=== PATIENT | female | born 1970 | race American Indian/Alaskan Native ===

== ENCOUNTER 2016-11-13 12:08 | Emergency (ER) | payer SELFPAY ==
[2016-11-13 12:35] VITALS: BP 123/84
--- NOTE | 2016-11-13 14:15 | Emergency Department Report ---
ED General Adult HPI - General Chief complaint: Earache Stated complaint: LT EAR/THROAT PAIN Time Seen by Provider: 11/13/16 14:07 Source: patient Mode of arrival: Ambulatory Limitations: No Limitations - History of Present Illness Initial comments: 46 year old female presents with sore throat and left sided earache. denies fever, cough, cp, sob, abdominal pain. states taking otc medication with no relief. - Related Data Previous Rx's Medication Instructions Recorded Last Taken Type Fluconazole [Diflucan] 150 mg PO QDAY #1 tablet 02/15/14 Unknown Rx Penicillin Vk [Veetids TAB] 2 tab PO BID #40 tablet 02/15/14 Unknown Rx metroNIDAZOLE [Flagyl] 500 mg PO BID #14 tablet 02/15/14 Unknown Rx Ibuprofen [Motrin 800 MG tab] 800 mg PO Q8H #45 tablet 10/18/14 Unknown Rx traMADol [Ultram 50 MG tab] 50 mg PO Q6HR PRN #30 tablet 10/18/14 Unknown Rx Penicillin Vk [Veetids TAB] 500 mg PO QID #28 tablet 11/13/16 Unknown Rx Allergies Allergy/AdvReac Type Severity Reaction Status Date / Time acetaminophen [From Percocet] Allergy Hives Verified 02/14/14 20:11 hydrocodone bitartrate Allergy Swelling Verified 02/14/14 20:11 [From Vicodin] oxycodone HCl [From Percocet] Allergy Hives Verified 02/14/14 20:11 ED Review of Systems ROS: Stated complaint: LT EAR/THROAT PAIN Other details as noted in HPI Constitutional: denies: chills, fever Eyes: denies: eye pain, eye discharge, vision change ENT: denies: ear pain, throat pain Respiratory: denies: cough, shortness of breath, wheezing Cardiovascular: denies: chest pain, palpitations Endocrine: no symptoms reported Gastrointestinal: denies: abdominal pain, nausea, diarrhea Genitourinary: denies: urgency, dysuria, discharge Musculoskeletal: denies: back pain, joint swelling, arthralgia Skin: denies: rash, lesions Neurological: denies: headache, weakness, paresthesias Psychiatric: denies: anxiety, depression Hematological/Lymphatic: denies: easy bleeding, easy bruising ED Past Medical Hx - Past Medical History Previous Medical History?: No - Surgical History Additional Surgical History: screws in right knee, X 2 - Social History Smoking Status: Current Every Day Smoker Substance Use Type: Alcohol - Medications Home Medications: Home Medications Medication Instructions Recorded Confirmed Last Taken Type Fluconazole [Diflucan] 150 mg PO QDAY #1 tablet 02/15/14 Unknown Rx Penicillin Vk [Veetids TAB] 2 tab PO BID #40 tablet 02/15/14 Unknown Rx metroNIDAZOLE [Flagyl] 500 mg PO BID #14 tablet 02/15/14 Unknown Rx Ibuprofen [Motrin 800 MG tab] 800 mg PO Q8H #45 tablet 10/18/14 Unknown Rx traMADol [Ultram 50 MG tab] 50 mg PO Q6HR PRN #30 tablet 10/18/14 Unknown Rx Penicillin Vk [Veetids TAB] 500 mg PO QID #28 tablet 11/13/16 Unknown Rx ED Physical Exam - General Limitations: No Limitations General appearance: alert, in no apparent distress - Head Head exam: Present: atraumatic, normocephalic - Eye Eye exam: Present: normal appearance - ENT ENT exam: Present: normal orophraynx, mucous membranes moist, TM's normal bilaterally, normal external ear exam. Absent: mucous membranes dry - Neck Neck exam: Present: normal inspection - Respiratory Respiratory exam: Present: normal lung sounds bilaterally. Absent: respiratory distress - Cardiovascular Cardiovascular Exam: Present: regular rate, normal rhythm. Absent: systolic murmur, diastolic murmur, rubs, gallop - GI/Abdominal GI/Abdominal exam: Present: soft, normal bowel sounds - Extremities Exam Extremities exam: Present: normal inspection - Back Exam Back exam: Present: normal inspection - Neurological Exam Neurological exam: Present: alert, oriented X3 - Psychiatric Psychiatric exam: Present: normal affect, normal mood - Skin Skin exam: Present: warm, dry, intact, normal color. Absent: rash ED Course Vital Signs 11/13/16 12:31 Temperature 98.6 F Pulse Rate 78 Respiratory 16 Rate Blood Pressure 123/84 O2 Sat by Pulse 100 Oximetry ED Medical Decision Making - Medical Decision Making patient is resting comfortably at this time. VSS and NAD. Critical care attestation.: If time is entered above; I have spent that time in minutes in the direct care of this critically ill patient, excluding procedure time. ED Disposition Clinical Impression: Acute URI Disposition: DISCHARGED TO HOME OR SELFCARE Is pt being admited?: No Does the pt Need Aspirin: No Condition: Good Instructions: Upper Respiratory Infection (ED) Additional Instructions: take medication as prescribed. Prescriptions: Penicillin Vk [Veetids TAB] 500 mg PO QID #28 tablet Referrals: KEYSHA NICHOLS MD [Referring] - 3-5 Days Time of Disposition: 14:16
== END 2016-11-13 14:22 | disposition home or self-care (01) ==
LOC: ED 12:08
DX: J06.9 Acute upper respiratory infection, unspecified (principal); F17.200 Nicotine dependence, unspecified, uncomplicated; Z88.8 Allergy status to other drugs, medicaments and biological substances
CPT/HCPCS: 99282

== ENCOUNTER 2021-03-02 09:24 | Day surgery (SDC) | payer OTHER ==
[2021-02-28 13:12] LABS: Eosinophils # (Auto) 0.1 K/mm3 (0.0-0.4); Eosinophils % (Auto) 2.4 % (0.0-4.3); Hematocrit 42.2 % (30.3-42.9); Hemoglobin 14.2 gm/dl (10.1-14.3); Lymphocytes # (Auto) 3.1 K/mm3 (1.2-5.4); Lymphocytes % (Auto) 52.6 % (13.4-35.0); Mean Corpuscular HGB Conc 34 % (30-34); Mean Corpuscular Volume 92 fl (79-97); Monocytes # (Auto) 0.5 K/mm3 (0.0-0.8); Monocytes % (Auto) 7.6 % (0.0-7.3); Platelet Count 359 K/mm3 (140-440); Red Blood Count 4.59 M/mm3 (3.65-5.03); Red Cell Distribution Width 14.2 % (13.2-15.2)
--- NOTE | 2021-02-28 13:29 | Anesthesia Consultation ---
Anesthesia Consult and Med Hx Date of service: 03/02/21 - Airway Anesthetic Teeth Evaluation: Good, Partials (upper) ROM Head & Neck: Adequate Mental/Hyoid Distance: Adequate Mallampati Class: Class II Intubation Access Assessment: Probably Good - Pulmonary Exam CTA: Yes - Cardiac Exam Cardiac Exam: RRR - Pre-Operative Health Status ASA Pre-Surgery Classification: ASA2 Proposed Anesthetic Plan: General Nerve Block: TAP - Pulmonary Hx Smoking: Yes (1/2 PPD) Hx Respiratory Symptoms: No - Cardiovascular System Hx Hypertension: No - Central Nervous System CVA: No - Endocrine Hx Renal Disease: No Hx Liver Disease: No Hx Insulin Dependent Diabetes: No Hx Non-Insulin Dependent Diabetes: No Hx Thyroid Disease: No - Other Systems Hx Obesity: No - Additional Comments Anesthesia Medical History Comments: No hx anesthetic complications. Hx allergy to oxycodone and hydrocodone w/ reaction of hives. Unsure of which PO pain medications have worked for her in the past. No known reaction to IV opioids. No allergy to tylenol.
[~2021-03-02 09:24] MED LIST: ACETAMINOPHEN 500 MG TAB PO SCH; CELECOXIB 200 MG CAP PO NR; GABAPENTIN 300 MG CAP PO NR; LACTATED RINGERS 1,000 ML IV SCH; MIDAZOLAM 2 MG/2 ML INJ IV NR; SCOPOLAMINE TRANSDERMAL PATCH 72 HR TD NR; fentaNYL 100 MCG/2 ML INJ IV PRN
[2021-03-02] MEDS ORDERED: dexAMETHasone 4 MG/ML VIAL ONE (10:09)
[2021-03-02] MEDS ORDERED: BUPIVACAINE/PF (0.25%) 2.5 MG/ML 30 ML VIAL INFILTRATI ONE (10:09)
[2021-03-02] MEDS ORDERED: cloNIDine/PF 1,000 MCG/10 ML VIAL EP ONE (10:09)
[2021-03-02] MEDS ORDERED: fentaNYL 100 MCG/2 ML INJ IV PRN (10:30)
[2021-03-02] MEDS ORDERED: ONDANSETRON 4 MG/2 ML INJ IV PRN ×2 (10:30→17:42)
--- NOTE | 2021-03-02 10:30 | Anesthesia Day of Surgery ---
Anesthesia Day of Surgery - Day of Surgery Patient Examined: Yes Patient H&P Reviewed: Yes Patient is NPO: Yes
--- NOTE | 2021-03-02 11:02 | Short Stay Summary ---
Short Stay Documentation Date of service: 03/02/21 Narrative H&P: 50-year-old -0-3-2 with dysfunctional uterine bleeding and uterine fibroids. Pelvic ultrasound demonstrated an enlarged uterus of 13 cm with multiple leiomyomas. The largest leiomyoma measured 7.2 cm. The patient elected for definitive surgical management. - History Principal diagnosis: Symptomatic uterine fibroids Past Medical History: No medical history Past Surgical History: Other (Abdominoplasty; breast lumpectomy; knee surgery) Social history: single - Allergies and Medications Current Medications: Allergies acetaminophen [From Percocet] Allergy (Verified 02/25/21 16:51) Hives hydrocodone bitartrate [From Vicodin] Allergy (Verified 02/25/21 16:51) Swelling oxycodone HCl [From Percocet] Allergy (Verified 02/25/21 16:51) Hives Home Medications Medication Instructions Recorded Confirmed Last Taken Type No Known Home Medications [No 02/25/21 02/25/21 Unknown History Reported Home Medications] Active Medications Acetaminophen (Acetaminophen 500 Mg Tab) 1,000 mg PO PREOP KENNEDI Celecoxib (Celecoxib 200 Mg Cap) 200 mg PO PREOP NR Stop: 03/02/21 23:59 Fentanyl (Fentanyl 100 Mcg/2 Ml Inj) 100 mcg IV ONCE PRN PRN Reason: sedation for nerve block Stop: 03/02/21 23:59 Fentanyl (Fentanyl 100 Mcg/2 Ml Inj) 50 mcg IV Q5MIN PRN PRN Reason: Pain , Severe (7-10) Stop: 03/02/21 23:00 Gabapentin (Gabapentin 300 Mg Cap) 300 mg PO PREOP NR Stop: 03/02/21 23:59 Lactated Ringer's (Lactated Ringers) 1,000 mls @ 100 mls/hr IV DIRECT KENNEDI Stop: 03/02/21 23:59 Midazolam HCl (Midazolam 2 Mg/2 Ml Inj) 2 mg IV PREOP NR Stop: 03/02/21 23:59 Ondansetron HCl (Ondansetron 4 Mg/2 Ml Inj) 4 mg IV ONCE PRN PRN Reason: Nausea And Vomiting Stop: 03/02/21 14:00 Scopolamine (Scopolamine Transdermal Patch 72 Hr) 1 each TD PREOP NR Stop: 03/05/21 05:59 - Physical exam General appearance: no acute distress Integumentary: no rash HEENT: Atraumatic Lungs: Clear to auscultation Breasts: deferred Heart: Regular rate Gastrointestinal: normal Female Genitourinary: deferred Rectal Exam: deferred - Brief post op/procedure progress note Date of procedure: 03/02/21 Pre-op diagnosis: Symptomatic uterine fibroids Post-op diagnosis: same Procedure: Robotic hysterectomy and bilateral salpingectomy Anesthesia: GETA Surgeon: DENNIS RETANA Estimated blood loss: other (200 mL) Pathology: list (Uterus, cervix, bilateral tubes, leiomyomas) Specimen disposition: to lab Condition: stable - Hospital course Hospital course: The patient was admitted the day of surgery and underwent a robotic hysterectomy and bilateral salpingectomy. Please see operative note for details of surgery. Postoperative course was uneventful. - Disposition Condition at discharge: Good Disposition: 01 HOME / SELF CARE / HOMELESS Short Stay Discharge Plan Activity: other (Pelvic rest for 6 weeks) Diet: regular Additional Instructions: Follow-up with Dr. Retana in 4 weeks Pelvic rest for 6 weeks No tub baths for 4 weeks however patient may shower Patient may drive in 2 weeks
[2021-03-02] MEDS ORDERED: NEOMY 40 MG/POLYMYXIN B 200,000 UNITS/ML (GU) AMPULE IR ONE ×2 (11:23→14:23)
[2021-03-02] MEDS ORDERED: ceFAZolin/Water 2 GM/20 ML 2 GM/20 ML SYRINGE IV NR (12:00)
[2021-03-02] MEDS ORDERED: LIDOCAINE MPF (2%) 20 MG/1 ML VIAL 5 ML ONE (12:59)
[2021-03-02] MEDS ORDERED: propofoL 200 MG/20 ML VIAL IV ONE (12:59)
[2021-03-02] MEDS ORDERED: HYDROmorphone 1 MG/1 ML INJ ONE ×2 (12:59→17:40)
[2021-03-02] MEDS ORDERED: SODIUM CHLORIDE 0.9% IRRIG SOLN 2000 ML IR ONE (14:24)
[2021-03-02] MEDS ORDERED: SODIUM CHLORIDE 0.9% IRR 1,500 ML BOTTLE IR ONE (14:24)
[2021-03-02] MEDS ORDERED: LACTATED RINGERS 1,000 ML ONE (15:32)
[2021-03-02] MEDS ORDERED: dexAMETHasone 20 MG/5 ML VIAL ONE (15:32)
[2021-03-02] MEDS ORDERED: ROCURONIUM 50 MG/5 ML INJ IV ONE (15:32)
[2021-03-02] MEDS ORDERED: ONDANSETRON 4 MG/2 ML INJ ONE (15:32)
[2021-03-02] MEDS ORDERED: KETOROLAC 30 MG/1 ML INJ ONE (15:52)
[2021-03-02] MEDS ORDERED: NEOSTIGMINE 10MG/10 ML INJ MDV ONE (15:52)
[2021-03-02] MEDS ORDERED: GLYCOPYRROLATE 0.4 MG/2 ML INJ ONE (15:52)
--- NOTE | 2021-03-02 15:55 | Operative Report ---
Operative Report Operative Report: Date of surgery: March 02, 2021 Preoperative diagnoses: Symptomatic uterine fibroids Postoperative diagnoses: Same as above Procedure: Robotic hysterectomy; bilateral salpingectomy Surgeon: Alexandria Romero M.D. Orthotic Fitter: Elyssa Holder Anesthesia: Gen. endotracheal anesthesia Estimated blood loss: 200 mL Pathology: Uterus, cervix, bilateral tubes, leiomyomas Indication: 50-year-old -0-3-2 with a history of symptomatic uterine fibroids. The patient elected to undergo definitive surgical management. Procedure: The patient was taken to the operating room and given general endotracheal anesthesia without complication after a time out was performed confirming the surgery and identity of the patient. She was prepped and draped in a normal sterile fashion. A bivalve speculum was placed in the patient's vagina and a single-tooth tenaculum placed on the anterior lip of the cervix. The uterus was sounded with the uterine sound. A stay suture with 0-vicryl was placed at 12 o'clock on the anterior cervix. A MetaJure uterine manipulator was placed in the bivalve speculum was then removed. A warm laparotomy sponge was placed in the vagina. Attention was then turned to the patient's abdomen where a 12millimeter supra umbilical skin incision was then made. A Veress needle was placed and peritoneal entry was verified water-filled syringe. Insufflation of the peritoneal cavity was performed with CO2 gas. The 12 mm trocar was then placed under direct visualization. An additional 8 mm robotic trocar was placed on the patient's left and right lateral side just opposite of the supraumbilical trocar. An additional 5 mm right lateral trocar was then placed as the accessory port. The supraumbilical 12 mm trocar site was closed with the Mario Reynolds device and 0-vicryl suture. The patient was then placed in steep Trendelenburg. The da Tesha robot was then engaged. A fenestrated forcep was placed in arm 2 and a vessel sealer was placed in arm 1. General survey of the abdomen and pelvis revealed a markedly enlarged fibroid uterus with multiple leiomyomas. The tubes and ovaries were normal in appearance. The surgeon then transferred to the surgical console. The mesosalpinx was then isolated on the right. The vessel sealer was used to coagulate the mesosalpinx which was then transected. The tube was transected from the ovary. The tubo-ovarian ligament was then coagulated and transected. The round ligament was then coagulated and transected also. The vesicouterine peritoneum was then entered from the patient's right side. The uterine vessels were then coagulated with the vessel sealer. The vessels were then transected . Attention was then turned to the patient's left side where the tubo-ovarian ligament and mesosalpinx were again isolated coagulated and transected. The vesical peritoneum was then entered from the left and joined in the midline. Peritoneum was reflected off of the lower uterine segment. Uterine vessels were then coagulated and then transected. The blood supply to the uterus was adequately contained. A supracervical hysterectomy had to be performed in order to improve visualization. The uterus was bivalved and the leiomyomas removed in order to decompress the uterus. The V care ring was visualized. Posterior colpotomy was created with the monopolar scissors. The incision was continued circumferentially until anterior colpotomy was made. The cervix and uterus were amputated from the vaginal cuff. The uterus was then removed along with the tubes bilaterally and the multiple leiomyomas through the vagina and a warm laparotomy sponge was placed and maintain the pneumoperitoneum. The vaginal cuff was then closed in a running fashion with V lock suture. Irrigation of the pelvis was performed. Hemoblast was applied to the incision. The The [employer] robot was undocked. The trocars were removed and the insuffliation was released. The skin was then reapproximated with 4-0 Monocryl. The tissue was sent to pathology which included the cervix, leiomyomas, bilateral tubes and uterus. The patient was then successfully extubated. She was then taken to the recovery room in stable condition. All sponge laps and needle counts were correct x2.
[2021-03-02] MEDS: HYDROmorphone 1 MG/1 ML INJ IV PRN ×2 (17:41→17:51)
[2021-03-02 19:16] VITALS: BP 107/60
--- NOTE | 2021-03-02 20:51 | Post Anesthesia Evaluation ---
- Post Anesthesia Evaluation Patient Participated: Yes Airway Patent: Yes Stable Respiratory Function: Yes Nausea/Vomiting: No Temp > 96.8F: Yes Pain Manageable: Yes Adequeate Hydration: Yes Anesthesia Complications: No
== END 2021-03-02 19:00 | disposition home or self-care (01) ==
LOC: OR 09:24
PROVIDERS: ATTEND Obstetrics & Gynecology
DX: D25.9 Leiomyoma of uterus, unspecified (principal); F17.210 Nicotine dependence, cigarettes, uncomplicated; Z79.899 Other long term (current) drug therapy; Z72.89 Other problems related to lifestyle; Z98.890 Other specified postprocedural states; Z20.822 Contact with and (suspected) exposure to COVID-19
CPT/HCPCS: 36415; 58573; 64488; 84703; 85025; 86850; 86900; 86901; 88307; A4217; J0690; J0735; J1100; J1170; J1885; J2250; J2405; J2704; J2710; J3010; J7120; S2900; U0003; 64450

== ENCOUNTER 2021-03-05 06:55 | Emergency (ER) | payer OTHER ==
[2021-03-05 07:39] LABS: Basophils # (Auto) 0.1 K/mm3 (0.0-0.1); Basophils % (Auto) 0.3 % (0.0-1.8); Hematocrit 43.1 % (30.3-42.9); Hemoglobin 14.8 gm/dl (10.1-14.3); Lymphocytes # (Auto) 1.7 K/mm3 (1.2-5.4); Mean Corpuscular HGB Conc 34 % (30-34); Mean Corpuscular Volume 91 fl (79-97); Monocytes # (Auto) 0.7 K/mm3 (0.0-0.8); Monocytes % (Auto) 4.3 % (0.0-7.3); Platelet Count 372 K/mm3 (140-440); Red Blood Count 4.73 M/mm3 (3.65-5.03); Red Cell Distribution Width 13.9 % (13.2-15.2)
[2021-03-05 07:47] LABS: Alanine Aminotransferase 13 units/L (7-56); Albumin 3.3 g/dL (3.9-5); Blood Urea Nitrogen 10 mg/dL (7-17); Calcium 9.4 mg/dL (8.4-10.2); Hemolysis Index 8
[2021-03-05 07:51] LABS: BUN/Creatinine Ratio 25
[2021-03-05] MEDS ORDERED: SODIUM CHLORIDE 0.9% 1000 ML 1,000 ML IV ONE ×2 (08:23→10:06)
[2021-03-05] MEDS ORDERED: MORPHINE 4 MG/1 ML INJ IV ONE (08:23)
[2021-03-05] MEDS ORDERED: KETOROLAC 30 MG/1 ML INJ IV ONE (08:23)
[2021-03-05] MEDS ORDERED: ONDANSETRON 4 MG/2 ML INJ IV ONE ×2 (08:23→10:06)
--- NOTE | 2021-03-05 08:27 | Emergency Department Report ---
ED Abdominal Pain HPI - General Chief Complaint: Nausea/Vomiting/Diarrhea Stated Complaint: VOMITING POST HYSTERECTOMY PUI?: No Time Seen by Provider: 03/05/21 08:22 Source: patient Mode of arrival: Ambulatory Limitations: No Limitations - History of Present Illness Initial Comments: CC: vomiting, in pain HPI: This is a 50 yo female with hx of uterine fibroids who is 3 days s/p robotic hysterectomy and bilateral salpingectomy who presents with lower abdominal pain and vomiting. Moderately severe 8/10 achy pain. Persistent vomiting since surgery.last bowel movement one week ago MD Complaint: abdominal pain -: Gradual, days(s) (3 days) Location: LLQ, RLQ Radiation: none Severity scale (0 -10): 8 Quality: aching Consistency: constant Improves With: nothing Worsens With: nothing Associated Symptoms: nausea - Related Data Previous Rx's Medication Instructions Recorded Last Taken Type Ondansetron [Zofran Odt] 4 mg PO Q8HR PRN #20 tab.rapdis 03/05/21 Unknown Rx Polyethylene Glycol 3350 [Miralax] 1 cap PO BID 5 Days #1 container 03/05/21 Unknown Rx Allergies Allergy/AdvReac Type Severity Reaction Status Date / Time acetaminophen [From Percocet] Allergy Hives Verified 02/25/21 16:51 hydrocodone bitartrate Allergy Swelling Verified 02/25/21 16:51 [From Vicodin] oxycodone HCl [From Percocet] Allergy Hives Verified 02/25/21 16:51 ED Review of Systems ROS: Stated complaint: VOMITING POST HYSTERECTOMY Other details as noted in HPI Comment: All other systems reviewed and negative Constitutional: denies: chills, fever Respiratory: denies: shortness of breath Cardiovascular: denies: chest pain Gastrointestinal: abdominal pain, nausea, vomiting, constipation. denies: diarrhea ED Past Medical Hx - Past Medical History Previous Medical History?: Yes Additional medical history: Uterine Fibroids - Surgical History Past Surgical History?: Yes Additional Surgical History: screws in right knee, X 2 hysterectomy - Family History Family history: hypertension - Social History Smoking Status: Current Every Day Smoker Substance Use Type: None - Medications Home Medications: Home Medications Medication Instructions Recorded Confirmed Last Taken Type Ondansetron [Zofran Odt] 4 mg PO Q8HR PRN #20 tab.rapdis 03/05/21 Unknown Rx Polyethylene Glycol 3350 [Miralax] 1 cap PO BID 5 Days #1 container 03/05/21 Unknown Rx ED Physical Exam - General Limitations: No Limitations General appearance: alert, in no apparent distress, other (appears uncomfortable, clammy) - Head Head exam: Present: atraumatic, normocephalic - Eye Eye exam: Present: normal appearance - ENT ENT exam: Present: mucous membranes moist - Neck Neck exam: Present: normal inspection, full ROM - Respiratory Respiratory exam: Present: normal lung sounds bilaterally. Absent: respiratory distress, wheezes, rales, rhonchi - Cardiovascular Cardiovascular Exam: Present: regular rate, normal rhythm, normal heart sounds. Absent: systolic murmur, diastolic murmur, rubs, gallop - GI/Abdominal GI/Abdominal exam: Present: soft. Absent: distended, tenderness, guarding, rebound - Extremities Exam Extremities exam: Present: normal inspection - Neurological Exam Neurological exam: Present: alert, oriented X3 - Psychiatric Psychiatric exam: Present: normal affect, normal mood - Skin Skin exam: Present: warm, dry, intact, normal color. Absent: rash ED Course Vital Signs 03/05/21 03/05/21 03/05/21 06:58 08:43 08:44 Temperature 98.3 F Pulse Rate 111 H Respiratory 18 18 18 Rate Blood Pressure 132/94 O2 Sat by Pulse 98 Oximetry 03/05/21 03/05/21 09:13 09:14 Temperature Pulse Rate 100 H Respiratory 18 18 Rate Blood Pressure 123/82 O2 Sat by Pulse 97 Oximetry ED Medical Decision Making - Lab Data Result diagrams: 03/05/21 07:12 03/05/21 07:12 - Radiology Data Radiology results: report reviewed [facility] [address] [place] [address] Cat Scan Report Signed Patient: SINA VERDUZCO MR#: [id number] : 1970 Acct:[id number] Age/Sex: 50 / F ADM Date: 03/05/21 Loc: ED Attending Dr: Ordering Physician: Laure Broderick MD Date of Service: 03/05/21 Procedure(s): CT abdomen pelvis w con Accession Number(s): [id number] cc: Laure Broderick MD CT ABDOMEN AND PELVIS WITH CONTRAST INDICATION / CLINICAL INFORMATION: Pt states abdominal pain with vomiting, S/P Hysterectomy. TECHNIQUE: Axial CT images were obtained through the abdomen and pelvis after 100 cc Omnipaque [address] scans at this location are performed using CT dose reduction for ALARA by means of automated exposure control. COMPARISON: None available. FINDINGS: LOWER CHEST: There are groundglass opacities in the right middle lobe and linear opacities in the bilateral lower lobes. LIVER: No focal liver lesion. There is fluid around the liver with Hounsfield unit of 20. GALLBLADDER: No significant abnormality. BILE DUCTS: No significant abnormality. PANCREAS: No significant abnormality. SPLEEN: No significant abnormality. ADRENALS: No significant abnormality. RIGHT KIDNEY / URETER: No significant abnormality. LEFT KIDNEY / URETER: No significant abnormality. STOMACH / SMALL BOWEL: Small hiatal hernia. There are loops of mildly dilated fluid-filled small bowel in the midabdomen without definite transition point seen. COLON: Mild colonic stool burden APPENDIX: No significant abnormality. PERITONEUM: Small volume ascites, likely postoperative. Small volume free air is also likely postoperative. LYMPH NODES: No significant adenopathy. AORTA / ARTERIES: No significant abnormality. IVC / VEINS: No significant abnormality. URINARY BLADDER: No significant abnormality. REPRODUCTIVE ORGANS: Postsurgical changes from recent hysterectomy. ADDITIONAL FINDINGS: Gas in the fascial planes most pronounced in the right lateral abdomen is postsurgical. Multiple injection granulomas in the bilateral buttocks. SKELETAL SYSTEM: No aggressive osseous lesion IMPRESSION: 1. Status post recent hysterectomy with small volume ascites which is likely postoperative. There is postoperative small volume pneumoperitoneum and gas in the fascial planes of the right abdominal wall. 2. Fluid-filled mildly dilated loops of small bowel without definite transition point seen. These findings may represent postoperative ileus. 3. Mild colonic stool burden. 4. Groundglass opacities in the right middle lobe may represent aspiration- related changes. Bibasilar atelectasis. Signer Name: Kristofer Alvarado MD Signed: 03/05/2021 11:15 AM Workstation Name: [id number] Transcribed By: GÉNESIS Dictated By: KRISTOFER ALVARADO MD Electronically Authenticated By: KRISTOFER ALVARADO MD Signed Date/Time: 03/05/21 1115 DD/ 1107 TD/TT: - Medical Decision Making Postoperative pain, postoperative ileus patient symptom improved with IV morphine IV Zofran in emergency department patient also received 2 L normal saline emergency department. CT scan ruled out acute intra-abdominal process. No indication of SBO. Patient did not have any vomiting in the emergency department. Patient has post surgical findings of mild pneumoperitoneum. No indication of peritonitis. Patient had recent COVID 19 negative tiest. Chest findings indicative of ileus. Prescribed Miralax and Zofran Nonspecific leukocytosis, common after surgery. No evidence of postoperative infection. Patient is taking ibuprofen 800 and hydromorphone 4 mg tablets for pain. I r ecommended scheduled consistent dosing. Critical care attestation.: If time is entered above; I have spent that time in minutes in the direct care of this critically ill patient, excluding procedure time. ED Disposition Clinical Impression: Post-op pain, Postoperative ileus Disposition: 01 HOME / SELF CARE / HOMELESS Is pt being admited?: No Does the pt Need Aspirin: No Condition: Stable Prescriptions: Polyethylene Glycol 3350 [Miralax] 1 cap PO BID 5 Days #1 container Ondansetron [Zofran Odt] 4 mg PO Q8HR PRN #20 tab.rapdis PRN Reason: Nausea Referrals: DENNIS RETANA MD [Staff Physician] - 3-5 Days
[2021-03-05 09:15] VITALS: BP 123/82
--- NOTE | 2021-03-05 11:19 | Cat Scan Report ---
CT ABDOMEN AND PELVIS WITH CONTRAST INDICATION / CLINICAL INFORMATION: Pt states abdominal pain with vomiting, S/P Hysterectomy. TECHNIQUE: Axial CT images were obtained through the abdomen and pelvis after 100 cc Omnipaque [address] scans at this location are performed using CT dose reduction for ALARA by means of automated exposure control. COMPARISON: None available. FINDINGS: LOWER CHEST: There are groundglass opacities in the right middle lobe and linear opacities in the freida ateral lower lobes. LIVER: No focal liver lesion. There is fluid around the liver with Hounsfield unit of 20. GALLBLADDER: No significant abnormality. BILE DUCTS: No significant abnormality. PANCREAS: No significant abnormality. SPLEEN: No significant abnormality. ADRENALS: No significant abnormality. RIGHT KIDNEY / URETER: No significant abnormality. LEFT KIDNEY / URETER: No significant abnormality. STOMACH / SMALL BOWEL: Small hiatal hernia. There are loops of mildly dilated fluid-filled small tr l in the midabdomen without definite transition point seen. COLON: Mild colonic stool burden APPENDIX: No significant abnormality. PERITONEUM: Small volume ascites, likely postoperative. Small volume free air is also likely postoper ative. LYMPH NODES: No significant adenopathy. AORTA / ARTERIES: No significant abnormality. IVC / VEINS: No significant abnormality. URINARY BLADDER: No significant abnormality. REPRODUCTIVE ORGANS: Postsurgical changes from recent hysterectomy. ADDITIONAL FINDINGS: Gas in the fascial planes most pronounced in the right lateral abdomen is postsu rgical. Multiple injection granulomas in the bilateral buttocks. SKELETAL SYSTEM: No aggressive osseous lesion IMPRESSION: 1. Status post recent hysterectomy with small volume ascites which is likely postoperative. There is postoperative small volume pneumoperitoneum and gas in the fascial planes of the right abdominal wall . 2. Fluid-filled mildly dilated loops of small bowel without definite transition point seen. These fin dings may represent postoperative ileus. 3. Mild colonic stool burden. 4. Groundglass opacities in the right middle lobe may represent aspiration-related changes. Bibasilar atelectasis. Signer Name: Kristofer Alvarado MD Signed: 03/05/2021 11:15 AM Workstation Name: [id number]
== END 2021-03-05 12:25 | disposition home or self-care (01) ==
LOC: ED 06:55
DX: G89.18 Other acute postprocedural pain (principal); K56.7 Ileus, unspecified; Z88.6 Allergy status to analgesic agent; Z88.5 Allergy status to narcotic agent; Z88.8 Allergy status to other drugs, medicaments and biological substances; F17.200 Nicotine dependence, unspecified, uncomplicated
CPT/HCPCS: 36415; 74177; 80053; 85025; 96361; 96374; 96375; 99284; J1885; J2270; J2405; J7030; Q9967

== ENCOUNTER 2021-03-09 11:33 | Inpatient (IN) | payer OTHER ==
[2021-03-09] MEDS ORDERED: ONDANSETRON 4 MG/2 ML INJ IV PRN (12:47)
[2021-03-09] MEDS: AMPICILLIN/SULBACTA 3GM/100ML 3 GM/100 ML BAG IV SCH (17:56)
[2021-03-09] MEDS: MORPHINE 4 MG/1 ML INJ IV PRN (17:59)
[2021-03-09 21:20] LABS: Basophils % (Auto) 0.1 % (0.0-1.8); Eosinophils # (Auto) 0.1 K/mm3 (0.0-0.4); Eosinophils % (Auto) 0.7 % (0.0-4.3); Hemoglobin 11.4 gm/dl (10.1-14.3); Lymphocytes # (Auto) 0.7 K/mm3 (1.2-5.4); Lymphocytes % (Auto) 5.7 % (13.4-35.0); Mean Corpuscular HGB Conc 34 % (30-34); Mean Corpuscular Volume 92 fl (79-97); Monocytes # (Auto) 0.8 K/mm3 (0.0-0.8); Monocytes % (Auto) 6.8 % (0.0-7.3); Platelet Count 296 K/mm3 (140-440); Red Blood Count 3.69 M/mm3 (3.65-5.03); Red Cell Distribution Width 14.3 % (13.2-15.2)
[2021-03-09 21:39] LABS: Alanine Aminotransferase 50 units/L (7-56); Albumin 2.1 g/dL (3.9-5); Blood Urea Nitrogen 10 mg/dL (7-17); Calcium 7.5 mg/dL (8.4-10.2); Hemolysis Index 21
[2021-03-09 21:40] LABS: BUN/Creatinine Ratio 14
[2021-03-09] MEDS: DOCUSATE SODIUM 100 MG CAP PO SCH (22:18)
[2021-03-10] MEDS: AMPICILLIN/SULBACTA 3GM/100ML 3 GM/100 ML BAG IV SCH ×4 (00:07→20:36)
[2021-03-10] MEDS: D5W/LACTATED RINGERS 1,000 ML IV SCH (00:17)
[2021-03-10] MEDS: MORPHINE 4 MG/1 ML INJ IV PRN ×2 (00:18→05:50)
[2021-03-10] MEDS: HYDROmorphone 2 MG TAB PO PRN ×3 (03:03→20:34)
--- NOTE | 2021-03-10 07:30 | History and Physical Report ---
History of Present Illness Date of examination: 03/10/21 Date of admission: 03/09/21 16:22 Chief complaint: Abdominal pain History of present illness: 50-year-old -0-3-2 who is postoperative day 8 status post a robotic hysterectomy represents with abdominal pain, nausea and vomiting. CT scan of the abdomen pelvis was performed at [facility] with findings of a 10 cm fluid collection in the pelvis could not rule out abscess. The patient noted that her pain had been increasing in intensity and was not being controlled with the p.o. pain meds. Past History Past Medical History: no pertinent history Past Surgical History: other (Robotic hysterectomy; abdominoplasty; breast lumpectomy; knee surgery) Social history: no significant social history - Obstetrical History : 5 Para: 2 Hx # Term Pregnancies: 2 Number of Pregnancies: 0 Spontaneous Abortions: 3 Induced : 0 Number of Living Children: 2 Medications and Allergies Allergies Allergy/AdvReac Type Severity Reaction Status Date / Time acetaminophen [From Percocet] Allergy Hives Verified 02/25/21 16:51 hydrocodone bitartrate Allergy Swelling Verified 02/25/21 16:51 [From Vicodin] oxycodone HCl [From Percocet] Allergy Hives Verified 02/25/21 16:51 Home Medications Medication Instructions Recorded Confirmed Last Taken Type Ondansetron [Zofran Odt] 4 mg PO Q8HR PRN #20 tab.rapdis 03/05/21 Unknown Rx Polyethylene Glycol 3350 [Miralax] 1 cap PO BID 5 Days #1 container 03/05/21 Unknown Rx Active Meds: Active Medications Acetaminophen (Acetaminophen 325 Mg Tab) 650 mg PO Q4H PRN PRN Reason: Pain, Mild (1-3) Docusate Sodium (Docusate Sodium 100 Mg Cap) 100 mg PO BID [facility] Last Admin: 03/09/21 22:18 Dose: 100 mg Documented by: Hydromorphone HCl (Hydromorphone 2 Mg Tab) 2 mg PO Q4H PRN PRN Reason: Pain , Severe (7-10) Last Admin: 03/10/21 03:03 Dose: 2 mg Documented by: Dextrose/Lactated Ringer's (D5lr) 1,000 mls @ 125 mls/hr IV DIRECT [facility] Last Admin: 03/10/21 00:17 Dose: 125 mls/hr Documented by: Ampicillin Sodium/Sulbactam Sodium (Unasyn/Ns 3 Gm/100 Ml) 3 gm in 100 mls @ 200 mls/hr IV Q6HR [facility]; Protocol Last Admin: 03/10/21 05:50 Dose: 200 mls/hr Documented by: Ibuprofen (Ibuprofen 800 Mg Tab) 800 mg PO Q8H PRN PRN Reason: Pain, Moderate (4-6) Morphine Sulfate (Morphine 4 Mg/1 Ml Inj) 4 mg IV Q4H PRN PRN Reason: Pain , Severe (7-10) Last Admin: 03/10/21 05:50 Dose: 4 mg Documented by: Ondansetron HCl (Ondansetron 4 Mg/2 Ml Inj) 4 mg IV Q8H PRN PRN Reason: Nausea And Vomiting Review of Systems Gastrointestinal: abdominal pain, nausea, vomiting - Vital Signs Vital signs: Vital Signs Resp 19 03/09/21 15:50 Temp Pulse Resp BP Pulse Ox 100.0 F H 109 H 18 104/52 100 03/10/21 03:48 03/10/21 03:48 03/10/21 05:50 03/10/21 03:48 03/10/21 03:48 - Physical Exam Abdomen: Positive: tenderness Results Result Diagrams: 03/09/21 21:03 03/09/21 21:03 Abnormal lab results 03/09/21 03/09/21 Range/Units 21:03 21:03 WBC 12.3 H (4.5-11.0) K/mm3 Lymph % (Auto) 5.7 L (13.4-35.0) % Lymph # (Auto) 0.7 L (1.2-5.4) K/mm3 Seg Neutrophils % 86.7 H (40.0-70.0) % Seg Neutrophils # 10.6 H (1.8-7.7) K/mm3 Sodium 135 L (137-145) mmol/L Glucose 143 H (65-100) mg/dL Calcium 7.5 L D (8.4-10.2) mg/dL Total Protein 5.7 L D (6.3-8.2) g/dL Albumin 2.1 L (3.9-5) g/dL All other labs normal. Assessment and Plan - Patient Problems (1) Hematoma Current Visit: Yes Status: Acute Plan to address problem: The patient had laboratories drawn in [facility] ED which demonstrates a decrease in her white count IV antibiotics initiated Will consult interventional radiology for possible percutaneous drainage of the fluid collection (2) Post-op pain Current Visit: No Status: Acute (3) Postoperative ileus Current Visit: No Status: Acute
[2021-03-10] MEDS ORDERED: fentaNYL 100 MCG/2 ML INJ IV SCH (10:00)
[2021-03-10] MEDS ORDERED: MIDAZOLAM 5 MG/5 ML INJ MDV IV NR (10:00)
[2021-03-10] MEDS ORDERED: MIDAZOLAM 5 MG/5 ML INJ MDV IV ONE (10:08)
[2021-03-10] MEDS ORDERED: fentaNYL 100 MCG/2 ML INJ ONE (10:08)
[2021-03-10] MEDS ORDERED: SODIUM CHLORIDE 0.9% 1000 ML 1,000 ML ONE (10:35)
[2021-03-10] MEDS ORDERED: ceFAZolin/Water 2 GM/20 ML 2 GM/20 ML SYRINGE IV ONE (10:40)
--- NOTE | 2021-03-10 11:17 | Operative Report ---
Operative Report Operative Report: Exam: CT-guided drainage of pelvic abscess Clinical indication: Patient with a history of robotic hysterectomy 1 week ago who presented with worsening abdominal pain and the presence of a fluid collection Date: 03/10/2021 Procedure: Following an explanation of the risks, benefits and alternatives; written informed consent was obtained. The patient was brought to the CT suite and placed in supine position on the gantry. Initial web systems developer images of the abdomen and pelvis were performed and an appropriate access site was chosen along the patient left lower quadrant. The patient was prepped and draped in the usual sterile fashion. 1% lidocaine was used for anesthesia at the skin surface and along the tract of the catheter. Using intermittent CT guidance, a 15 cm 18-gauge trocar needle was advanced into the central aspect of the fluid collection. There is prompt return of brownish purulent fluid. A 0.035 guidewire was then advanced through the needle and coiled within the fluid collection. The needle was removed and following serial dilation over the guidewire, a 10 Kuwaiti pigtail drainage catheter was advanced over the guidewire and the guidewire removed. The pigtail was formed within the central aspect of the fluid collection and imaging obtained to document appropriate positioning. A total of 260 mL of brownish purulent fluid was then aspirated. A sample was sent for laboratory analysis. CT of the abdomen also demonstrate subcutaneous emphysema predominantly up the left flank as well. Additionally, the patient has what appear to be more simple fluid collections in the abdomen. The fluid collection that was drained demonstrated an air-fluid level and communicates with an additional fluid level in the posterior cul-de-sac. The patient tolerated the procedure well. There were no immediate post procedure complications. A minimal amount of sedation was given secondary to patient's sepsis. Continuous cardiopulmonary monitoring is utilized. Impression: CT-guided placement of 10 Kuwaiti drainage catheter in pelvic abscess with 260 mL of brownish purulent fluid aspirated. Sample sent for laboratory analysis.
--- NOTE | 2021-03-10 11:21 | Consultation ---
History of Present Illness - Reason for Consult Consult date: 03/10/21 Pelvic abscess - History of Present Illness Patient with a history of robotic hysterectomy Sunday of last week who prese nted to [place] with worsening abdominal pain and underwent a CT scan of her abdomen and pelvis which demonstrates a fluid collection within the abdomen. Patient was then brought to [facility] for further care. At time of examination, the patient is complaining of abdominal pain and fullness. Past History Past Surgical History: hysterectomy Social history: no significant social history Medications and Allergies Allergies Allergy/AdvReac Type Severity Reaction Status Date / Time acetaminophen [From Percocet] Allergy Hives Verified 02/25/21 16:51 hydrocodone bitartrate Allergy Swelling Verified 02/25/21 16:51 [From Vicodin] oxycodone HCl [From Percocet] Allergy Hives Verified 02/25/21 16:51 Home Medications Medication Instructions Recorded Confirmed Last Taken Type Ondansetron [Zofran Odt] 4 mg PO Q8HR PRN #20 tab.rapdis 03/05/21 Unknown Rx Polyethylene Glycol 3350 [Miralax] 1 cap PO BID 5 Days #1 container 03/05/21 Unknown Rx Active Meds: Active Medications Acetaminophen (Acetaminophen 325 Mg Tab) 650 mg PO Q4H PRN PRN Reason: Pain, Mild (1-3) Cefazolin Sodium (Cefazolin/Sterile Water 2 Gm/20 Ml Syringe) 2 gm IV PREOP NR Docusate Sodium (Docusate Sodium 100 Mg Cap) 100 mg PO BID [facility] Last Admin: 03/09/21 22:18 Dose: 100 mg Documented by: Fentanyl (Fentanyl 100 Mcg/2 Ml Inj) 100 mcg IV ONCE [facility] Stop: 03/10/21 16:00 Hydromorphone HCl (Hydromorphone 2 Mg Tab) 2 mg PO Q4H PRN PRN Reason: Pain , Severe (7-10) Last Admin: 03/10/21 03:03 Dose: 2 mg Documented by: Dextrose/Lactated Ringer's (D5lr) 1,000 mls @ 125 mls/hr IV DIRECT [facility] Last Admin: 03/10/21 00:17 Dose: 125 mls/hr Documented by: Ampicillin Sodium/Sulbactam Sodium (Unasyn/Ns 3 Gm/100 Ml) 3 gm in 100 mls @ 200 mls/hr IV Q6HR [facility]; Protocol Last Admin: 03/10/21 05:50 Dose: 200 mls/hr Documented by: Ibuprofen (Ibuprofen 800 Mg Tab) 800 mg PO Q8H PRN PRN Reason: Pain, Moderate (4-6) Midazolam HCl (Midazolam 5 Mg/5 Ml Inj Mdv) 5 mg IV ONCE NR Stop: 03/10/21 16:00 Morphine Sulfate (Morphine 4 Mg/1 Ml Inj) 4 mg IV Q4H PRN PRN Reason: Pain , Severe (7-10) Last Admin: 03/10/21 05:50 Dose: 4 mg Documented by: Ondansetron HCl (Ondansetron 4 Mg/2 Ml Inj) 4 mg IV Q8H PRN PRN Reason: Nausea And Vomiting Review of Systems All systems: negative Exam - Constitutional Vitals: Temp Pulse Resp BP Pulse Ox 99.3 F 131 H 18 126/70 92 03/10/21 08:42 03/10/21 08:42 03/10/21 05:50 03/10/21 08:42 03/10/21 08:42 General appearance: Present: no acute distress - EENT ENT: hearing intact - Neck Neck: Present: supple, normal ROM - Respiratory Respiratory effort: normal - Extremities Extremities: no ischemia - Abdominal General gastrointestinal: Present: tender, distended Female genitourinary: Present: deferred - Rectal Rectal Exam: deferred - Psychiatric Psychiatric: appropriate mood/affect, cooperative Results - Labs CBC & Chem 7: 03/09/21 21:03 03/09/21 21:03 Labs: Abnormal lab results 03/09/21 03/09/21 Range/Units 21:03 21:03 WBC 12.3 H (4.5-11.0) K/mm3 Lymph % (Auto) 5.7 L (13.4-35.0) % Lymph # (Auto) 0.7 L (1.2-5.4) K/mm3 Seg Neutrophils % 86.7 H (40.0-70.0) % Seg Neutrophils # 10.6 H (1.8-7.7) K/mm3 Sodium 135 L (137-145) mmol/L Glucose 143 H (65-100) mg/dL Calcium 7.5 L D (8.4-10.2) mg/dL Total Protein 5.7 L D (6.3-8.2) g/dL Albumin 2.1 L (3.9-5) g/dL - Imaging and Cardiology CT scan - abdomen: image reviewed (From [place]) CT scan - pelvis: image reviewed Assessment and Plan Patient was brought to the CT suite and underwent CT-guided placement of a 10 Yemeni drainage catheter with a total of 260 mL of purulent fluid aspirated. Her CT scan was notable also for other simple appearing intra-abdominal fluid collections predominantly along the flanks which may be postoperative in nature. Additionally, the patient was noted to have subcutaneous emphysema. This may be postsurgical in nature.
[2021-03-10] MEDS ORDERED: ceFAZolin/STERILE WATER 2 GM/20 ML SYRINGE IV NR (12:00)
[2021-03-10] MEDS: DOCUSATE SODIUM 100 MG CAP PO SCH (20:37)
[2021-03-11] MEDS: AMPICILLIN/SULBACTA 3GM/100ML 3 GM/100 ML BAG IV SCH ×4 (00:10→22:01)
[2021-03-11] MEDS: MORPHINE 4 MG/1 ML INJ IV PRN ×3 (00:13→22:01)
[2021-03-11] MEDS: D5W/LACTATED RINGERS 1,000 ML IV SCH ×2 (00:13→11:52)
[2021-03-11] MEDS: DOCUSATE SODIUM 100 MG CAP PO SCH ×2 (10:01→22:01)
[2021-03-11] MEDS: IBUPROFEN 800 MG TAB PO PRN ×2 (10:01→17:47)
--- NOTE | 2021-03-11 12:49 | Cat Scan Report ---
PLEASE SEE OPERATIVE REPORT ON 03-10-21 @ 11:14AM [facility]
--- NOTE | 2021-03-11 15:45 | Vascular Lab Report ---
DUPLEX DOPPLER LOWER EXTREMITY VEINS, BILATERAL INDICATION / CLINICAL INFORMATION: Right leg swelling. TECHNIQUE: Duplex doppler imaging was performed through the veins of both lower extremities using stefano ous compression and other maneuvers. COMPARISON: None available. FINDINGS: RIGHT COMMON FEMORAL VEIN: Negative. RIGHT FEMORAL VEIN: Negative. RIGHT POPLITEAL VEIN: Negative. RIGHT CALF VEINS: Negative. LEFT COMMON FEMORAL VEIN: Negative. LEFT FEMORAL VEIN: Negative. LEFT POPLITEAL VEIN: Negative. LEFT CALF VEINS: Negative. ADDITIONAL FINDINGS: None. IMPRESSION: 1. No sonographic evidence for DVT in either lower extremity. Signer Name: Michael Mariscal DO Signed: 03/11/2021 3:41 PM Workstation Name: [id number]
[2021-03-12] MEDS: AMPICILLIN/SULBACTA 3GM/100ML 3 GM/100 ML BAG IV SCH ×4 (04:31→22:00)
[2021-03-12] MEDS: HYDROmorphone 2 MG TAB PO PRN (04:45)
[2021-03-12] MEDS: DOCUSATE SODIUM 100 MG CAP PO SCH ×2 (10:30→21:45)
[2021-03-12] MEDS: IBUPROFEN 800 MG TAB PO PRN (10:36)
[2021-03-12] MEDS ORDERED: LOPERAMIDE 2 MG CAP PO SCH (12:30)
--- NOTE | 2021-03-12 13:01 | Progress Note ---
Assessment and Plan Hospital day 2 for this patient with postoperative complications and abscess. Her drain is only draining minimal amounts of whitish-yellow fluid. Abdomen is distended and warm even though her bowels are moving. She also continues to hav e swelling of the right leg from the thigh down to the ankle. A CBC is pending for this morning once the results returned, we will have a better understanding of her current blood count. If the patient continues to improve she may be able to be discharged on tomorrow. In the meantime we will prescribe Imodium for the diarrhea and baby aspirin for the lower extremity swelling. Subjective Date of service: 03/12/21 Principal diagnosis: Postoperative abscess Interval history: Patient is a 50-year-old female who is approximately 10 days status post a robotic hysterectomy with Dr. Saint Lewis. Patient presented to the ED last week complaining of pain but was discharged. She then presented to another ED where she was found to have a pelvic abscess. She was admitted for antibiotic therapy on March [address]-guided drainage of the abscesses. Patient began complaining of swelling in her right leg and a Doppler was performed however was found to be negative for DVT. Patient denies fever or chills, but she did have several episodes of diarrhea on this morning. Objective - Constitutional Vitals: Vital Signs - 12hr 03/12/21 03/12/21 04:37 07:50 Temperature 99.5 F 98.4 F Pulse Rate 112 H 100 H Respiratory 20 18 Rate Blood Pressure 102/69 103/70 O2 Sat by Pulse 96 99 Oximetry General appearance: Present: no acute distress - Neck Neck: supple - Breasts Breasts: deferred - Cardiovascular Rhythm: regular Heart Sounds: Present: S1 & S2 Extremity abnormal: edema (Right leg with 2+ edema from thigh to the ankle) - Gastrointestinal General gastrointestinal: Present: tender, distended, other (Warm to touch) Rectal Exam: deferred - Integumentary Integumentary: warm - Labs CBC & Chem 7: 03/09/21 21:03 03/09/21 21:03 Medications & Allergies - Medications Allergies/Adverse Reactions: Allergies acetaminophen [From Percocet] Allergy (Verified 02/25/21 16:51) Hives hydrocodone bitartrate [From Vicodin] Allergy (Verified 02/25/21 16:51) Swelling oxycodone HCl [From Percocet] Allergy (Verified 02/25/21 16:51) Hives Home Medications: Home Medications Medication Instructions Recorded Confirmed Last Taken Type Ondansetron [Zofran Odt] 4 mg PO Q8HR PRN #20 tab.rapdis 03/05/21 Unknown Rx Polyethylene Glycol 3350 [Miralax] 1 cap PO BID 5 Days #1 container 03/05/21 Unknown Rx Active Medications: Generic Name Dose Route Start Last Admin Trade Name Freq PRN Reason Stop Dose Admin Acetaminophen 650 mg 03/09/21 12:46 Acetaminophen 325 Mg Tab PO Q4H PRN Pain, Mild (1-3) Docusate Sodium 100 mg 03/09/21 22:00 03/11/21 22:01 Docusate Sodium 100 Mg Cap PO 100 mg BID [facility] Administration Hydromorphone HCl 2 mg 03/09/21 12:47 03/12/21 04:45 Hydromorphone 2 Mg Tab PO 2 mg Q4H PRN Administration Pain , Severe (7-10) Dextrose/Lactated Ringer's 1,000 mls @ 125 mls/hr 03/09/21 13:00 03/11/21 11:52 D5lr IV 125 mls/hr DIRECT [facility] Administration Ampicillin Sodium/Sulbactam Sodium 3 gm in 100 mls @ 200 mls/hr 03/09/21 18:00 03/12/21 10:37 Unasyn/Ns 3 Gm/100 Ml IV 200 mls/hr Q6HR [facility] Administration Protocol Ibuprofen 800 mg 03/09/21 12:47 03/12/21 10:36 Ibuprofen 800 Mg Tab PO 800 mg Q8H PRN Administration Pain, Moderate (4-6) Loperamide HCl 2 mg 03/12/21 12:30 Loperamide 2 Mg Cap PO 03/12/21 14:00 ONCE [facility] Morphine Sulfate 4 mg 03/09/21 12:47 03/11/21 22:01 Morphine 4 Mg/1 Ml Inj IV 4 mg Q4H PRN Administration Pain , Severe (7-10) Ondansetron HCl 4 mg 03/09/21 12:47 Ondansetron 4 Mg/2 Ml Inj IV Q8H PRN Nausea And Vomiting
[2021-03-12 15:07] LABS: Basophils % (Auto) 0.2 % (0.0-1.8); Eosinophils # (Auto) 0.1 K/mm3 (0.0-0.4); Eosinophils % (Auto) 0.9 % (0.0-4.3); Hematocrit 29.1 % (30.3-42.9); Hemoglobin 9.6 gm/dl (10.1-14.3); Lymphocytes % (Auto) 6.2 % (13.4-35.0); Mean Corpuscular HGB Conc 33 % (30-34); Mean Corpuscular Volume 92 fl (79-97); Monocytes # (Auto) 1.2 K/mm3 (0.0-0.8); Monocytes % (Auto) 7.7 % (0.0-7.3); Platelet Count 289 K/mm3 (140-440); Red Blood Count 3.18 M/mm3 (3.65-5.03); Red Cell Distribution Width 14.6 % (13.2-15.2)
[2021-03-12] MEDS: ACETAMINOPHEN 325 MG TAB PO PRN (23:08)
[2021-03-13] MEDS: AMPICILLIN/SULBACTA 3GM/100ML 3 GM/100 ML BAG IV SCH ×3 (03:42→21:44)
[2021-03-13] MEDS ORDERED: LOPERAMIDE 2 MG CAP PO ONE (11:01)
[2021-03-13] MEDS ORDERED: KETOROLAC 30 MG/1 ML INJ IV PRN (15:38)
--- NOTE | 2021-03-13 15:46 | Progress Note ---
Assessment and Plan POD 11 s/p H now with post op abcess, -pod 2 from drain placement. Abcess: Drain is putting out only minimal fluid. White count increasing despite IV antibiotics. Awaiting cultures of fluid from abcess. Diarrhea: New in onset. Will order stool cultures to rule out C.Diff. Begin Flagyl empirically RLE Swelling- Pt right leg is still edematous and tight, with normal dopplers Will also change site of IV. Subjective - Subjective Date of service: 03/13/21 Principal diagnosis: Postoperative abscess Interval history: Pt still complaining of abdominal pain. Now with recurrent bouts of copious diarrhea. Pt states that her IV is causing pain and she does not want anymore IV antibiotics. Pt also reports being allergic to several pain meds and is concerned to take any. Patient reports: pain poorly controlled, ambulating normally, nauseated Objective - Vital Signs Latest vital signs: Vital Signs Temp Pulse Resp BP Pulse Ox 03/13/21 13:19 99.0 F 89 18 120/74 100 03/13/21 09:01 99.0 F 91 H 18 123/80 98 03/13/21 07:59 99 03/13/21 04:35 98.3 F 84 20 114/70 100 03/13/21 00:33 99.3 F 89 20 109/71 97 03/12/21 23:08 20 03/12/21 20:10 98 03/12/21 19:49 98.5 F 94 H 20 118/75 99 Intake and Output 03/13/21 03/13/21 03/13/21 06:59 14:59 22:59 Intake Total 340 Output Total 20 Balance 320 Intake: IV 100 UNASYN/NS 3 GM/100 ML 3 100 gm In 100 ml @ 200 mls/hr IV Q6HR [facility] Rx#: [id number] Intake, Free Water 240 Output: Drainage 20 Abdomen 20 Other: Total, Output Amount 20 Voiding Method Toilet # Voids 1 Void 3 1 - Exam Abdomen: Present: distention (less then yesterday), tenderness Extremities: Present: edema (RLE, improved from yesterday)
[2021-03-13 16:15] LABS: Basophils # (Auto) 0.1 K/mm3 (0.0-0.1); Basophils % (Auto) 0.5 % (0.0-1.8); Eosinophils # (Auto) 0.1 K/mm3 (0.0-0.4); Eosinophils % (Auto) 0.7 % (0.0-4.3); Hematocrit 32.6 % (30.3-42.9); Hemoglobin 10.9 gm/dl (10.1-14.3); Lymphocytes # (Auto) 1.3 K/mm3 (1.2-5.4); Lymphocytes % (Auto) 8.3 % (13.4-35.0); Mean Corpuscular HGB Conc 33 % (30-34); Mean Corpuscular Volume 91 fl (79-97); Monocytes % (Auto) 6.1 % (0.0-7.3); Platelet Count 373 K/mm3 (140-440); Red Blood Count 3.57 M/mm3 (3.65-5.03); Red Cell Distribution Width 14.6 % (13.2-15.2)
[2021-03-13] MEDS: metroNIDAZOLE 250 MG TAB PO SCH ×2 (16:51→21:43)
[2021-03-13] MEDS: DOCUSATE SODIUM 100 MG CAP PO SCH (21:43)
[2021-03-13] MEDS: ZOLPIDEM 5 MG TAB PO PRN (22:47)
[2021-03-14] MEDS: AMPICILLIN/SULBACTA 3GM/100ML 3 GM/100 ML BAG IV SCH ×2 (06:47→12:55)
[2021-03-14] MEDS: metroNIDAZOLE 250 MG TAB PO SCH (06:48)
[2021-03-14] MEDS ORDERED: LOPERAMIDE 2 MG CAP PO PRN (08:00)
--- NOTE | 2021-03-14 08:23 | Progress Note ---
Assessment and Plan - Patient Problems (1) Hematoma Current Visit: Yes Status: Acute Plan to address problem: repeat CT scan to determine progress of abscess repeat CBC continue oral flagyl (2) Post-op pain Current Visit: No Status: Acute (3) Postoperative ileus Current Visit: No Status: Acute Subjective - Subjective Date of service: 03/14/21 Principal diagnosis: Postoperative abscess Interval history: Patient reports feeling better. Awaiting to have another BM to test for C difficile. Patient denies any nausea and vomiting. Abdominal pain is improved. Drain with decreased output. Patient reports: appetite normal Objective - Vital Signs Latest vital signs: Vital Signs Temp Pulse Resp Resp BP BP Pulse Ox 03/14/21 04:15 99.2 F 99 H 20 101/58 96 03/14/21 00:30 99.8 F H 108 H 20 118/76 96 03/13/21 22:00 18 99 03/13/21 20:48 100.4 F H 105 H 20 116/70 98 03/13/21 16:44 98.4 F 95 H 18 116/64 98 03/13/21 13:19 99.0 F 89 18 120/74 100 03/13/21 09:01 99.0 F 91 H 18 123/80 98 Intake and Output 03/13/21 03/14/21 03/14/21 22:59 06:59 14:59 Intake Total 350 Output Total 10 Balance 340 Intake: IV 110 Right Forearm 10 UNASYN/NS 3 GM/100 ML 3 100 gm In 100 ml @ 200 mls/hr IV Q6HR [facility] Rx#: [id number] Oral 240 Output: Drainage 10 Abdomen 10 Other: Total, Intake Amount 240 Total, Output Amount 10 Voiding Method Toilet # Voids Void 1 - Labs Labs: Abnormal lab results 03/13/21 Range/Units 15:48 WBC 15.9 H (4.5-11.0) K/mm3 RBC 3.57 L (3.65-5.03) M/mm3 Lymph % (Auto) 8.3 L (13.4-35.0) % [place] # (Auto) 1.0 H (0.0-0.8) K/mm3 Seg Neutrophils % 84.4 H (40.0-70.0) % Seg Neutrophils # 13.4 H (1.8-7.7) K/mm3
--- NOTE | 2021-03-14 10:11 | Cat Scan Report ---
CT ABDOMEN AND PELVIS WITHOUT AND WITH CONTRAST INDICATION / CLINICAL INFORMATION: abscess omni 300 100ml . TECHNIQUE: Axial CT images were obtained through the abdomen and pelvis before and after 100 cc of Om nipaque [address] scans at this location are performed using CT dose reduction for ALA RA by means of automated exposure control. COMPARISON: 03/05/2021 FINDINGS: LOWER CHEST: There is platelike atelectasis versus scarring within the bilateral lung bases. AORTA / ARTERIES: No significant abnormality. IVC / VEINS: No significant abnormality. LYMPH NODES: No significant adenopathy. COLON: There are numerous diverticula. APPENDIX: Not visualized. STOMACH / SMALL BOWEL: No significant abnormality. PERITONEUM: There is no free fluid. There are several foci of free air throughout the peritoneum, whi ch may be postsurgical. Throughout the abdomen there are numerous rim-enhancing fluid collections wit h the largest collection noted in the right hemiabdomen, measuring approximately 9.5 x 5.0 x 10.9 cm. There is a percutaneous pigtail catheter noted within the pelvis. LIVER: Along the inferior margin of the right hepatic lobe there is a rim-enhancing fluid collection, measuring approximately 5.1 x 2.6 x 4.9 cm. Otherwise the liver is unremarkable. GALLBLADDER: No significant abnormality. BILE DUCTS: No significant abnormality. PANCREAS: No significant abnormality. SPLEEN: No significant abnormality. ADRENALS: No significant abnormality. RIGHT KIDNEY / URETER: No significant abnormality. LEFT KIDNEY / URETER: No significant abnormality. URINARY BLADDER: No significant abnormality. REPRODUCTIVE ORGANS: Uterus is absent. No significant adnexal abnormality. SKELETAL SYSTEM: No significant abnormality. ADDITIONAL FINDINGS: Subcutaneous emphysema again is seen, likely postprocedural. I IMPRESSION: 1. Numerous intra-abdominal and intrapelvic abscesses with the largest measuring 9.5 x 5.0 x 10.9 cm within the right hemiabdomen. There is a pigtail catheter within the pelvis which does not appear to communicate with the other intra-abdominal and intrapelvic abscesses. 2. There is a rim-enhancing fluid collection noted along the inferior margin of the right hepatic lob e concerning for a perihepatic abscess. 3. Subcutaneous emphysema and a few foci of intraperitoneal air felt to be postprocedural. Signer Name: Michael Mariscal DO Signed: 03/14/2021 10:06 AM Workstation Name: [id number]
[2021-03-14] MEDS: DOCUSATE SODIUM 100 MG CAP PO SCH ×3 (10:40→22:06)
[2021-03-14 11:35] LABS: Basophils # (Auto) 0.1 K/mm3 (0.0-0.1); Basophils % (Auto) 0.4 % (0.0-1.8); Eosinophils # (Auto) 0.1 K/mm3 (0.0-0.4); Eosinophils % (Auto) 0.7 % (0.0-4.3); Hematocrit 27.4 % (30.3-42.9); Hemoglobin 9.4 gm/dl (10.1-14.3); Lymphocytes # (Auto) 1.1 K/mm3 (1.2-5.4); Lymphocytes % (Auto) 6.8 % (13.4-35.0); Mean Corpuscular HGB Conc 34 % (30-34); Mean Corpuscular Volume 90 fl (79-97); Monocytes % (Auto) 6.3 % (0.0-7.3); Platelet Count 385 K/mm3 (140-440); Red Blood Count 3.04 M/mm3 (3.65-5.03); Red Cell Distribution Width 14.1 % (13.2-15.2)
--- NOTE | 2021-03-14 12:23 | Event Note ---
Date: 03/14/[address] scan. Plan for additional CT-guided drainage catheter placement tomorrow for the largest collection. N.p.o. after midnight except sips of water with meds.
[2021-03-14] MEDS ORDERED: GENTAMICIN 80 MG in SODIUM CHLORIDE 0.9% 100 ML IV SCH (12:30)
[2021-03-14] MEDS ORDERED: GENTAMICIN/NS 80 MG/100 ML 100 ML IV SCH (13:00)
[2021-03-14] MEDS ORDERED: CEFEPIME/NS 2 GM/100 ML 2 GM/100 ML BAG IV SCH (14:00)
[2021-03-14] MEDS ORDERED: VANCOMYCIN PHARMACY TO DOSE IV SCH (14:00)
--- NOTE | 2021-03-14 14:16 | Consultation ---
History of Present Illness - Reason for Consult Consult date: 03/14/21 pelvic abscess - History of Present Illness 50-year-old female with no medical history admitted on 03/09/2021 secondary to wor sening abdominal pain, associated with nausea and vomiting multiple times. Patient underwent robotic hysterectomy on 03/02/2021. Patient was seen so no patient had a CT scan show pelvic collection of 10 cm. On arrival, temperature 103.2, HR 129, RR 20, O2 sat 94, RR 19. Initial WBC 12.3. Hemoglobin 9.6. Platelets 296. Creatinine 0.7. SARS-CoV-2 PCR negative. Patient underwent IR drainage on 03/10/2021 Gram stain with positive rods, few PMNs. Repeat CT on 03/14/2021 showing no gross intra-abdominal and intrapelvic abscess, largest 9.5 x 5 x 10.9 cm on the right, there is another inferior right perihepatic collection noted. Review of Systems: positive in bold print General: fever, chills, malaise Cutaneous: rash, pruritus Head: headaches or injury Eyes: changes in vision, eye pain, double vision Ears: ear pain, ear discharge, ringing or hearing loss Nose: nose bleeding, stuffiness Mouth & throat: bleeding gums, horseness, no dental problems, or swollen glands Neck: no pain, node enlargement/lumps, tyroid enlargement or tenderness Respiratory: SOB, cough, HENDRICKSON, wheezing, sputum, hemoptysis, pleuritic chest pain Cardiovascular: chest pain, leg edema, cyanosis, HENDRICKSON, orthopnea Musculoskeletal: edema, deformities, pain Gastrointestinal: Abdominal pain, nausea, vomiting, hematemesis, diarrhea, constipation, melena, bright red blood in stools, fecal incontinence, jaundice Genitourinary/Reproductive: frequent urination, dysuria, hematuria, incontinence Neurogical: seizures, headaches, weakness, paresthesias, loss of speech or vision; memory loss, vertigo, tremors, numbness Psychiatric: stable mood; excessive anxiety, sadness or moodiness Past History Past Surgical History: hysterectomy Social history: no significant social history Medications and Allergies Allergies Allergy/AdvReac Type Severity Reaction Status Date / Time acetaminophen [From Percocet] Allergy Hives Verified 02/25/21 16:51 hydrocodone bitartrate Allergy Swelling Verified 02/25/21 16:51 [From Vicodin] oxycodone HCl [From Percocet] Allergy Hives Verified 02/25/21 16:51 Home Medications Medication Instructions Recorded Confirmed Last Taken Type Ondansetron [Zofran Odt] 4 mg PO Q8HR PRN #20 tab.rapdis 03/05/21 Unknown Rx Polyethylene Glycol 3350 [Miralax] 1 cap PO BID 5 Days #1 container 03/05/21 Unknown Rx metroNIDAZOLE [Flagyl] 500 mg PO Q12HR #20 tab 03/14/21 Unknown Rx Active Meds: Active Medications Acetaminophen (Acetaminophen 325 Mg Tab) 650 mg PO Q4H PRN PRN Reason: Pain, Mild (1-3) Last Admin: 03/12/21 23:08 Dose: 650 mg Documented by: Docusate Sodium (Docusate Sodium 100 Mg Cap) 100 mg PO BID [facility] Last Admin: 03/13/21 21:43 Dose: 100 mg Documented by: Hydromorphone HCl (Hydromorphone 2 Mg Tab) 2 mg PO Q4H PRN PRN Reason: Pain , Severe (7-10) Last Admin: 03/12/21 04:45 Dose: 2 mg Documented by: Dextrose/Lactated Ringer's (D5lr) 1,000 mls @ 125 mls/hr IV DIRECT [facility] Last Admin: 03/11/21 11:52 Dose: 125 mls/hr Documented by: Cefepime HCl (Cefepime/Ns 2 Gm/100 Ml) 2 gm in 100 mls @ 200 mls/hr IV Q12H [facility]; Protocol Metronidazole (Flagyl 500 Mg/100 Ml) 500 mg in 100 mls @ 100 mls/hr IV Q8H [facility]; Protocol Vancomycin HCl 1,500 mg/ (Sodium Chloride) 530 mls @ 333.333 mls/hr IV ONCE ONE Stop: 03/14/21 16:35 Ibuprofen (Ibuprofen 800 Mg Tab) 800 mg PO Q8H PRN PRN Reason: Pain, Moderate (4-6) Last Admin: 03/12/21 10:36 Dose: 800 mg Documented by: Ketorolac Tromethamine (Ketorolac 30 Mg/1 Ml Inj) 30 mg IV Q8H PRN PRN Reason: Pain, Moderate (4-6) Stop: 03/18/21 15:37 Loperamide HCl (Loperamide 2 Mg Cap) 2 mg PO Q2H PRN PRN Reason: Diarrhea Morphine Sulfate (Morphine 4 Mg/1 Ml Inj) 4 mg IV Q4H PRN PRN Reason: Pain , Severe (7-10) Last Admin: 03/11/21 22:01 Dose: 4 mg Documented by: Ondansetron HCl (Ondansetron 4 Mg/2 Ml Inj) 4 mg IV Q8H PRN PRN Reason: Nausea And Vomiting Zolpidem Tartrate (Zolpidem 5 Mg Tab) 5 mg PO QHS PRN PRN Reason: Sleep Last Admin: 03/13/21 22:47 Dose: 5 mg Documented by: Physical Examination - Physical Exam Narrative exam: General appearance: Alert in NAD pleasant Eyes: anicteric sclerae, moist conjunctivae; no lid-lag; PERRLA HENT: Normocephalic, Atraumatic; normal external ears, nares open, oropharynx clear with moist mucous membranes and no oral thrush; normal hard and soft palate. Neck: supple, tracheal midline, no JVD Lungs: CTA freida CV: RRR no murmur Abdomen: Soft, diffuse tenderness, drain with seropurulent fluid Extremities: no edema, no cyanosis Skin: No rash. Psych: no agitated Neuro: alert and oriented x 3. Moving all extermities - Constitutional Vitals: Vital Signs Temp Pulse Resp BP Pulse Ox 98.1 F 95 H 18 119/76 100 03/14/21 12:16 03/14/21 12:16 03/14/21 12:16 03/14/21 12:16 03/14/21 12:16 Temperature -Last 24 Hours Temperature 98.1 F Temperature 98.0 F Temperature 98.0 F Temperature 99.2 F Temperature 99.8 F Temperature 100.4 F Temperature 98.4 F Results - Labs CBC & Chem 7: 03/14/21 11:14 03/09/21 21:03 Labs: Abnormal lab results 03/13/21 03/14/21 Range/Units 15:48 11:14 WBC 15.9 H 16.6 H (4.5-11.0) K/mm3 RBC 3.57 L 3.04 L (3.65-5.03) M/mm3 Hgb 9.4 L (10.1-14.3) gm/dl Hct 27.4 L (30.3-42.9) % Lymph % (Auto) 8.3 L 6.8 L (13.4-35.0) % Lymph # (Auto) 1.1 L (1.2-5.4) K/mm3 [place] # (Auto) 1.0 H 1.0 H (0.0-0.8) K/mm3 Seg Neutrophils % 84.4 H 85.8 H (40.0-70.0) % Seg Neutrophils # 13.4 H 14.2 H (1.8-7.7) K/mm3 Assessment and Plan Cultures: IR culture: pending Assessment: 50-year-old female with no medical history status post robotic hysterectomy on 03/02/2021 admitted on 03/09/2021 secondary to worsening abdominal pain, associated with nausea and vomiting multiple times: #Sepsis: present on admission with high fever, tachycardia, leukocytosis; source likely multiple intra-abdominal and intrapelvic abscesses. #Multiple intra-abdominal and intrapelvic abscesses: initial CT with a pelvic collection 10cm. S/p IR drainage on 03/10/2021 Gram stain with positive rods, few PMNs. Repeat CT on 03/14/2021 showing no gross intra-abdominal and intrapelvic abscess, largest 9.5 x 5 x 10.9 cm on the right, there is another inferior right perihepatic collection noted. #Acute diarrhea: since admission. Recommendations: Follow-up IR cultures Obtain blood cultures Obtain UA Start cefepime 2 g IV q12 hour Start flagyl 500 mg IV q8 hour Start vancomyicn with PK consult Agree further IR drainage Repeat CT in 4-5 days, if not better consider surgical evaluation CRP Will follow. Nimo Christie MD Infectious Diseases Senior Software Quality Engineer [facility] M [phone] O [phone]
[2021-03-14] MEDS: metroNIDAZOLE/NS 500 MG/100 ML 500 MG/100 ML BAG IV SCH (14:50)
[2021-03-14] MEDS ORDERED: VANCOMYCIN 1,500 MG in SODIUM CHLORIDE 0.9% 500 ML 500 ML IV ONE (15:00)
[2021-03-14] MEDS: CEFEPIME 2 GM in SODIUM CHLORIDE 0.9% 100 ML IV SCH (16:45)
[2021-03-14] MEDS ORDERED: FLUCONAZOLE 100 MG TAB PO ONE (18:00)
[2021-03-14] MEDS: ZOLPIDEM 5 MG TAB PO PRN (21:57)
[2021-03-15] MEDS: metroNIDAZOLE/NS 500 MG/100 ML 500 MG/100 ML BAG IV SCH ×3 (01:02→21:28)
[2021-03-15] MEDS: CEFEPIME 2 GM in SODIUM CHLORIDE 0.9% 100 ML IV SCH ×2 (04:42→16:00)
[2021-03-15] MEDS: D5W/LACTATED RINGERS 1,000 ML IV SCH ×2 (04:43→12:58)
[2021-03-15] MEDS: VANCOMYCIN 1,250 MG in SODIUM CHLORIDE 0.9% 250ML 250 ML IV SCH ×2 (05:40→17:12)
[2021-03-15] MEDS ORDERED: fentaNYL 100 MCG/2 ML INJ IV NR (09:59)
[2021-03-15] MEDS ORDERED: MIDAZOLAM 5 MG/5 ML INJ MDV IV NR (09:59)
[2021-03-15] MEDS: DOCUSATE SODIUM 100 MG CAP PO SCH ×2 (10:00→21:28)
--- NOTE | 2021-03-15 10:05 | Progress Note ---
Assessment and Plan Cultures: IR culture: pending Assessment: 50-year-old female with no medical history status post robotic hysterectomy on 03/02/2021 admitted on 03/09/2021 secondary to worsening abdominal pain, associated with nausea and vomiting multiple times: #Sepsis: remains with low grade fever and leukocytosis; CRP=23. Source likely multiple intra-abdominal and intrapelvic abscesses. #Multiple intra-abdominal and intrapelvic abscesses: initial CT with a pelvic collection 10cm. S/p IR drainage on 03/10/2021 Gram stain with positive rods, few PMNs. Repeat CT on 03/14/2021 showing no gross intra-abdominal and intrapelvic abscess, largest 9.5 x 5 x 10.9 cm on the right, there is another inferior right perihepatic collection noted. S/p IR second drain right 250cc purulence. #Acute diarrhea: since admission. Recommendations: Follow-up IR cultures Obtain blood cultures, ordered Obtain UA, ordered Stool for Cdiff, ordered Continue cefepime 2 g IV q12 hour Continue flagyl 500 mg IV q8 hour Continue vancomyicn with PK consult Agree further IR drainage Repeat CT in 4-5 days, if not better consider surgical evaluation Will follow. Nimo Christie MD Infectious Diseases Entry Level Project Engineer [facility] M [phone] O [phone] Subjective Date of service: 03/15/21 Principal diagnosis: Postoperative abscess Interval history: Feels better remains with fever. Objective - Exam Narrative Exam: General appearance: Alert in NAD pleasant Eyes: anicteric sclerae, moist conjunctivae; no lid-lag; PERRLA HENT: Normocephalic, Atraumatic; normal external ears, nares open, oropharynx clear with moist mucous membranes and no oral thrush; normal hard and soft palate. Neck: supple, tracheal midline, no JVD Lungs: CTA freida CV: RRR no murmur Abdomen: Soft, diffuse tenderness, drain with seropurulent fluid Extremities: no edema, no cyanosis Skin: No rash. Psych: no agitated Neuro: alert and oriented x 3. Moving all extermities - Constitutional Vitals: Vital Signs Temp Pulse Resp BP Pulse Ox 99.2 F 84 24 112/66 100 03/15/21 05:23 03/15/21 05:23 03/15/21 05:23 03/15/21 05:23 03/15/21 08:10 Temperature -Last 24 Hours Temperature 99.2 F Temperature 98.5 F Temperature 98.3 F Temperature 100.9 F Temperature 100.1 F Temperature 98.1 F - Labs CBC & Chem 7: 03/14/21 11:14 03/14/21 19:34 Labs: Abnormal lab results 03/14/21 03/14/21 Range/Units 11:14 19:34 WBC 16.6 H (4.5-11.0) K/mm3 RBC 3.04 L (3.65-5.03) M/mm3 Hgb 9.4 L (10.1-14.3) gm/dl Hct 27.4 L (30.3-42.9) % Lymph % (Auto) 6.8 L (13.4-35.0) % Lymph # (Auto) 1.1 L (1.2-5.4) K/mm3 [place] # (Auto) 1.0 H (0.0-0.8) K/mm3 Seg Neutrophils % 85.8 H (40.0-70.0) % Seg Neutrophils # 14.2 H (1.8-7.7) K/mm3 C-Reactive Protein 23.30 H (0.00-1.30) mg/dL
[2021-03-15] MEDS ORDERED: MIDAZOLAM 5 MG/5 ML INJ MDV IV ONE (10:06)
[2021-03-15] MEDS ORDERED: fentaNYL 100 MCG/2 ML INJ ONE (10:07)
[2021-03-15] MEDS ORDERED: HYDROmorphone 1 MG/1 ML INJ ONE (10:38)
[2021-03-15] MEDS ORDERED: HYDROmorphone 1 MG/1 ML INJ IV ONE (10:45)
[2021-03-15] MEDS ORDERED: SODIUM CHLORIDE 0.9% 500 ML 500 ML IV SCH (11:00)
--- NOTE | 2021-03-15 11:19 | Operative Report ---
Operative Report Operative Report: EXAM: CT-guided placement of a 12 [place]ian APD percutaneous the drain in the right abdomen INDICATION: Status post hysterectomy with worsening abdominal pain and fluid collection. DATE: 03/15/2021 ORDNANCE MECHANIC: MALI FUENTES MD PROCEDURE: Following an explanation of the risks, benefits and alternatives; written informed consent was obtained. The patient was brought to the CT suite and placed in supine position on the gantry. Initial sign language teacher images of the abdomen and pelvis were performed and an appropriate access site was chosen along the patient right flank. The patient was prepped and draped in the usual sterile fashion. 1% lidocaine was used for anesthesia at the skin surface and along the tract of the catheter. Using intermittent CT guidance, a 10 cm 18-gauge trocar needle was advanced into the fluid collection. There is prompt return of greenish purulent fluid. A 0.035 guidewire was then advanced through the needle and coiled within the fluid collection. The needle was removed and following serial dilation over the guidewire, a 12 [place] APD drainage catheter was advanced over the guidewire and the guidewire removed. The pigtail was formed within the central aspect of the fluid collection and imaging obtained to document appropriate positioning. A total of 250 mL of greenish purulent fluid was then aspirated. A sample was sent for laboratory analysis. Final CT scan demonstrated resolution of most of the fluid. There are a few small fluid collections in the abdomen. These will hopefully improve with antibiotics. The patient tolerated the procedure well. There were no immediate post procedure complications. Continuous cardiopulmonary monitoring is utilized. IMPRESSION: CT-guided placement of 12 Tunisian drainage catheter in abdomen abscess with 250 mL of greenish purulent fluid aspirated. Sample sent for laboratory analysis.
--- NOTE | 2021-03-15 13:27 | Progress Note ---
Assessment and Plan - Patient Problems (1) Hematoma Current Visit: Yes Status: Acute (2) Post-op pain Current Visit: No Status: Acute (3) Postoperative ileus Current Visit: No Status: Acute (4) Pelvic abscess Current Visit: Yes Status: Acute Plan to address problem: Continue current IV antibiotic regimen CBC scheduled to be drawn today Drains are currently in place Subjective - Subjective Date of service: 03/15/21 Principal diagnosis: Postoperative abscess Interval history: Patient is pod #13 s/p robotic hysterectomy complicated by pelvic abscess. HD #2 with initiation of change in antibiotic regimen to cefepime, flagyl, and vanco. Today patient underwent CT guided drainage of pelvic abscess. She denies any nausea vomiting. She has not had a bowel movement today however. The patient reports feeling better. Objective - Vital Signs Latest vital signs: Vital Signs Temp Pulse Resp BP BP Pulse Ox Pulse Ox 03/15/21 12:31 97.8 F 94 H 20 131/79 99 03/15/21 10:47 24 03/15/21 08:43 98.2 F 84 20 133/81 99 03/15/21 08:10 100 03/15/21 05:23 99.2 F 84 24 112/66 100 03/15/21 05:08 99 03/15/21 01:13 98.5 F 81 20 118/74 96 03/14/21 22:05 98.3 F 03/14/21 20:18 100 03/14/21 20:10 100.9 F H 87 20 120/76 99 03/14/21 17:00 100.1 F H 90 18 113/74 98 Pulse Ox Pulse Ox 03/15/21 12:31 03/15/21 10:47 03/15/21 08:43 03/15/21 08:10 03/15/21 05:23 03/15/21 05:08 99 99 03/15/21 01:13 03/14/21 22:05 03/14/21 20:18 03/14/21 20:10 03/14/21 17:00 Intake and Output 03/14/21 03/15/21 03/15/21 22:59 06:59 14:59 Intake Total 735 362 9630 Output Total 25 Balance 648 35 2390 Intake: IV 114 102 8386 Cefepime 2 gm In NaCl 0.9 100 % 100 ml @ 200 mls/hr IV Q12H [facility] Rx#:[id number] D5lr 1,000 ml @ 125 mls/ 1000 hr IV DIRECT [facility] Rx#: [id number] FLAGYL 500 MG/100 ML 500 100 100 mg In 100 ml @ 100 mls/hr IV Q8H [facility] Rx#:[id number] Vancomycin 1,500 mg In 530 NaCl 0.9% 500 ml 500 ml @ 333.333 mls/hr IV ONCE ONE Rx#:[id number] Oral 1 0 Intake, Free Water 100 0 Output: Drainage 25 Abdomen 25 Other: Total, Intake Amount 1 0 Total, Output Amount 25 Voiding Method Toilet Toilet # Voids Void 1 1 1 - Labs Labs: Abnormal lab results 03/14/21 Range/Units 19:34 C-Reactive Protein 23.30 H (0.00-1.30) mg/dL
[2021-03-15 16:36] LABS: Basophils # (Auto) 0.1 K/mm3 (0.0-0.1); Basophils % (Auto) 0.6 % (0.0-1.8); Eosinophils # (Auto) 0.2 K/mm3 (0.0-0.4); Eosinophils % (Auto) 1.2 % (0.0-4.3); Hematocrit 28.1 % (30.3-42.9); Hemoglobin 9.4 gm/dl (10.1-14.3); Lymphocytes # (Auto) 1.6 K/mm3 (1.2-5.4); Lymphocytes % (Auto) 12.6 % (13.4-35.0); Mean Corpuscular HGB Conc 33 % (30-34); Mean Corpuscular Volume 91 fl (79-97); Monocytes # (Auto) 0.9 K/mm3 (0.0-0.8); Monocytes % (Auto) 7.2 % (0.0-7.3); Platelet Count 461 K/mm3 (140-440); Red Blood Count 3.07 M/mm3 (3.65-5.03); Red Cell Distribution Width 14.7 % (13.2-15.2)
[2021-03-15 18:06] LABS: Bacteria,Urine 1+ /HPF (Negative); Bilirubin,Urine NEG (Negative); Blood,Urine NEG (Negative); Color,Urine Yellow (Yellow); Mucus,Urine FEW /HPF; Protein,Urine <15 mg/dL mg/dL (Negative)
[2021-03-15] MEDS: ZOLPIDEM 5 MG TAB PO PRN (21:29)
[2021-03-16] MEDS: CEFEPIME 2 GM in SODIUM CHLORIDE 0.9% 100 ML IV SCH ×2 (04:49→16:25)
[2021-03-16] MEDS: metroNIDAZOLE/NS 500 MG/100 ML 500 MG/100 ML BAG IV SCH ×2 (05:35→14:33)
[2021-03-16] MEDS: VANCOMYCIN 1,250 MG in SODIUM CHLORIDE 0.9% 250ML 250 ML IV SCH ×2 (07:18→18:25)
[2021-03-16 07:30] LABS: Hematocrit 29.4 % (30.3-42.9); Hemoglobin 9.9 gm/dl (10.1-14.3); Mean Corpuscular HGB Conc 34 % (30-34); Mean Corpuscular Volume 91 fl (79-97); Platelet Count 483 K/mm3 (140-440); Red Blood Count 3.23 M/mm3 (3.65-5.03); Red Cell Distribution Width 14.8 % (13.2-15.2)
--- NOTE | 2021-03-16 09:15 | Progress Note ---
Assessment and Plan - Patient Problems (1) Hematoma Current Visit: Yes Status: Acute (2) Post-op pain Current Visit: No Status: Acute (3) Postoperative ileus Current Visit: No Status: Acute (4) Pelvic abscess Current Visit: Yes Status: Acute Plan to address problem: Patient demonstrated clinical improvement Continue IV antibiotics Supportive care Subjective - Subjective Date of service: 03/16/21 Principal diagnosis: Postoperative abscess Interval history: Patient is pod #14 s/p robotic hysterectomy complicated by pelvic abscess. HD #3 with initiation of change in antibiotic regimen to cefepime, flagyl, and vanco. The patient is demonstrating clinical improvement. She has remained afebrile greater than 24 hours. Her white blood cell count is decreasing. She is tolerating regular diet. The patient reports having a bowel movement yesterday and today that was formed Patient reports: appetite normal, voiding normally Objective - Vital Signs Latest vital signs: Vital Signs Temp Pulse Pulse Pulse Pulse Resp Resp 03/16/21 04:50 98.5 F 81 20 03/16/21 00:04 99.0 F 90 20 03/15/21 20:00 03/15/21 19:47 98.9 F 90 18 03/15/21 15:51 99.1 F 86 20 03/15/21 12:31 97.8 F 94 H 20 03/15/21 11:20 78 03/15/21 11:15 84 03/15/21 11:00 74 03/15/21 10:55 96 H 03/15/21 10:51 84 25 H 03/15/21 10:48 83 22 03/15/21 10:47 24 03/15/21 10:45 78 21 03/15/21 10:30 72 Resp Resp BP BP BP BP Pulse Ox 03/16/21 04:50 127/76 93 03/16/21 00:04 120/75 97 03/15/21 20:00 100 03/15/21 19:47 132/80 98 03/15/21 15:51 133/79 96 03/15/21 12:31 131/79 99 03/15/21 11:20 21 122/82 03/15/21 11:15 25 H 135/79 03/15/21 11:00 21 126/73 03/15/21 10:55 39 H 142/73 03/15/21 10:51 135/79 03/15/21 10:48 125/74 03/15/21 10:47 03/15/21 10:45 138/76 03/15/21 10:30 26 H 138/75 Pulse Ox Pulse Ox Pulse Ox 03/16/21 04:50 03/16/21 00:04 03/15/21 20:00 03/15/21 19:47 03/15/21 15:51 03/15/21 12:31 03/15/21 11:20 100 98 98 03/15/21 11:15 100 98 100 03/15/21 11:00 100 98 100 03/15/21 10:55 100 98 100 03/15/21 10:51 100 98 100 03/15/21 10:48 100 98 100 03/15/21 10:47 03/15/21 10:45 100 100 100 03/15/21 10:30 100 100 100 Intake and Output 03/15/21 03/16/21 03/16/21 22:59 06:59 14:59 Intake Total 595 360 Output Total 22 Balance 573 360 Intake: IV 475 Cefepime 2 gm In NaCl 0.9 100 % 100 ml @ 200 mls/hr IV Q12H [facility] Rx#:[id number] FLAGYL 500 MG/100 ML 500 100 mg In 100 ml @ 100 mls/hr IV Q8H [facility] Rx#:[id number] Vancomycin 1,250 mg In 275 NaCl 0.9% 250Ml 250 ml @ 166.667 mls/hr IV Q12H [facility] Rx#:[id number] Intake, Free Water 120 360 Output: Drainage 22 Abdomen 20 Left 2 Other: Total, Output Amount 22 Voiding Method Toilet # Voids Void 1 3 # Bowel Movements 1 - Labs Labs: Abnormal lab results 03/15/21 03/15/21 03/16/21 Range/Units 15:14 15:14 07:09 WBC 12.7 H 11.7 H (4.5-11.0) K/mm3 RBC 3.07 L 3.23 L (3.65-5.03) M/mm3 Hgb 9.4 L 9.9 L (10.1-14.3) gm/dl Hct 28.1 L 29.4 L (30.3-42.9) % Plt Count 461 H 483 H (140-440) K/mm3 Lymph % (Auto) 12.6 L (13.4-35.0) % [place] # (Auto) 0.9 H (0.0-0.8) K/mm3 Seg Neutrophils % 78.4 H (40.0-70.0) % Seg Neutrophils # 10.0 H (1.8-7.7) K/mm3 C-Reactive Protein 18.90 H (0.00-1.30) mg/dL
--- NOTE | 2021-03-16 12:27 | Progress Note ---
Assessment and Plan Cultures: IR culture: pending Assessment: 50-year-old female with no medical history status post robotic hysterectomy on 03/02/2021 admitted on 03/09/2021 secondary to worsening abdominal pain, associated with nausea and vomiting multiple times: #Sepsis: Fever and leukocytosis improving; CRP=23. Source likely multiple intra- abdominal and intrapelvic abscesses. UA negative. #Multiple intra-abdominal and intrapelvic abscesses: initial CT with a pelvic collection 10cm. S/p IR drainage on 03/10/2021 Gram stain with positive rods, few PMNs. Repeat CT on 03/14/2021 showing no gross intra-abdominal and intrapelvic abscess, largest 9.5 x 5 x 10.9 cm on the right, there is another inferior right perihepatic collection noted. S/p IR second drain to the right on 03/15/2021 250cc purulence. #Acute diarrhea: since admission. Resolved. Recommendations: Follow-up IR cultures Follow-up obtain blood cultures Continue cefepime 2 g IV q12 hour Continue flagyl 500 mg IV q8 hour Continue vancomyicn with PK consult Repeat CT on Sunday AM if clinically improved will consider continue IV antibiotics to go home. Will follow. Nimo Christie MD Infectious Diseases Architectural Draftsperson [facility] M [phone] O [phone] Subjective Date of service: 03/16/21 Principal diagnosis: Postoperative abscess Interval history: Patient is feeling better. Still has some abdominal pain. No fever. Objective - Exam Narrative Exam: General appearance: Alert in NAD pleasant Eyes: anicteric sclerae, moist conjunctivae; no lid-lag; PERRLA HENT: Normocephalic, Atraumatic; normal external ears, nares open, oropharynx clear. Neck: supple, tracheal midline, no JVD Lungs: CTA freida CV: RRR no murmur Abdomen: Soft, diffuse tenderness, bilateral drains with serous drainage Extremities: no edema, no cyanosis Skin: No rash. Psych: no agitated Neuro: alert and oriented x 3. Moving all extermities - Constitutional Vitals: Vital Signs Temp Pulse Resp BP Pulse Ox 99.2 F 85 20 123/75 97 03/16/21 08:18 03/16/21 08:18 03/16/21 08:18 03/16/21 08:18 03/16/21 08:18 Temperature -Last 24 Hours Temperature 99.2 F Temperature 98.5 F Temperature 99.0 F Temperature 98.9 F Temperature 99.1 F Temperature 97.8 F - Labs CBC & Chem 7: 03/16/21 07:09 03/14/21 19:34 Labs: Abnormal lab results 03/15/21 03/15/21 03/16/21 Range/Units 15:14 15:14 07:09 WBC 12.7 H 11.7 H (4.5-11.0) K/mm3 RBC 3.07 L 3.23 L (3.65-5.03) M/mm3 Hgb 9.4 L 9.9 L (10.1-14.3) gm/dl Hct 28.1 L 29.4 L (30.3-42.9) % Plt Count 461 H 483 H (140-440) K/mm3 Lymph % (Auto) 12.6 L (13.4-35.0) % [place] # (Auto) 0.9 H (0.0-0.8) K/mm3 Seg Neutrophils % 78.4 H (40.0-70.0) % Seg Neutrophils # 10.0 H (1.8-7.7) K/mm3 C-Reactive Protein 18.90 H (0.00-1.30) mg/dL
[2021-03-16] MEDS: IBUPROFEN 800 MG TAB PO PRN (14:58)
[2021-03-16] MEDS: DOCUSATE SODIUM 100 MG CAP PO SCH (22:16)
[2021-03-16] MEDS: ZOLPIDEM 5 MG TAB PO PRN (22:16)
[2021-03-17] MEDS: metroNIDAZOLE/NS 500 MG/100 ML 500 MG/100 ML BAG IV SCH ×2 (00:24→09:39)
[2021-03-17] MEDS: CEFEPIME 2 GM in SODIUM CHLORIDE 0.9% 100 ML IV SCH (05:54)
[2021-03-17] MEDS: VANCOMYCIN 1,250 MG in SODIUM CHLORIDE 0.9% 250ML 250 ML IV SCH (05:55)
--- NOTE | 2021-03-17 08:44 | Progress Note ---
Assessment and Plan - Patient Problems (1) Hematoma Current Visit: Yes Status: Acute (2) Post-op pain Current Visit: No Status: Acute (3) Postoperative ileus Current Visit: No Status: Acute (4) Pelvic abscess Current Visit: Yes Status: Acute Plan to address problem: repeat cbc this am schedule CT scan for am rectal suppository continue ambulation; place [facility] [place] Subjective - Subjective Date of service: 03/17/21 Principal diagnosis: Postoperative abscess Interval history: Patient is pod #15 s/p robotic hysterectomy complicated by pelvic abscess. HD #4 with initiation of change in antibiotic regimen to cefepime, flagyl, and vanco. The patient is demonstrating clinical improvement. She is afebrile. Complains of having the sensation of wanting to have a BM. Denies any emesis. Patient reports: appetite normal, voiding normally Objective - Vital Signs Latest vital signs: Vital Signs Temp Pulse Resp BP Pulse Ox 03/17/21 04:49 98.4 F 88 18 133/82 98 03/17/21 00:41 98.4 F 70 18 115/68 100 03/16/21 20:42 98.4 F 74 14 130/79 98 03/16/21 20:00 100 03/16/21 16:07 98.3 F 95 H 20 126/80 99 03/16/21 11:47 98.2 F 84 20 119/81 98 Intake and Output 03/16/21 03/17/21 03/17/21 22:59 06:59 14:59 Intake Total 955 360 Output Total 105 35 Balance 850 325 Intake: IV 475 Cefepime 2 gm In NaCl 0.9 100 % 100 ml @ 200 mls/hr IV Q12H [facility] Rx#:[id number] FLAGYL 500 MG/100 ML 500 100 mg In 100 ml @ 100 mls/hr IV Q8H [facility] Rx#:[id number] Vancomycin 1,250 mg In 275 NaCl 0.9% 250Ml 250 ml @ 166.667 mls/hr IV Q12H [facility] Rx#:[id number] Intake, Free Water 480 360 Output: Drainage 105 35 Abdomen 60 15 Left 45 20 Other: Total, Output Amount 105 35 # Voids Void 2 1
[2021-03-17] MEDS: DOCUSATE SODIUM 100 MG CAP PO SCH ×2 (09:39→23:45)
[2021-03-17 11:45] LABS: Hematocrit 28.6 % (30.3-42.9); Hemoglobin 9.6 gm/dl (10.1-14.3); Mean Corpuscular HGB Conc 34 % (30-34); Mean Corpuscular Volume 91 fl (79-97); Platelet Count 568 K/mm3 (140-440); Red Blood Count 3.14 M/mm3 (3.65-5.03); Red Cell Distribution Width 14.4 % (13.2-15.2)
--- NOTE | 2021-03-17 12:25 | Progress Note ---
Assessment and Plan Cultures: IR culture: E faecalis Blood culture: bacillus sp Assessment: 50-year-old female with no medical history status post robotic hysterectomy on 03/02/2021 admitted on 03/09/2021 secondary to worsening abdominal pain, associated with nausea and vomiting multiple times: #Sepsis: Fever and leukocytosis improving; CRP=23. Source likely multiple intra- abdominal and intrapelvic abscesses. UA negative. #Multiple intra-abdominal and intrapelvic abscesses: initial CT with a pelvic collection 10cm. S/p IR drainage on 03/10/2021 Gram stain with positive rods, few PMNs. Repeat CT on 03/14/2021 showing no gross intra-abdominal and intrapelvic abscess, largest 9.5 x 5 x 10.9 cm on the right, there is another inferior right perihepatic collection noted. S/p IR second drain to the right on 03/15/2021 250cc purulence. #Acute diarrhea: since admission. Resolved. #Bacillus sp in blood culture: likely a contaminant Recommendations: Stop vancomycin, cefepine and flagyl Start zosyn 4.5 g IV q8h (growing E faecalis in IR culture) Repeat CT tomorrow am if clinically improved will consider continue IV antibiotics to go home. Will follow. Nimo Christie MD Infectious Diseases [facility] [employer] ([facility]) M [phone] O [phone] Subjective Date of service: 03/17/21 Principal diagnosis: Postoperative abscess Interval history: Feels okay, complaining of abdominal pain and gas. No fever.. Objective - Exam Narrative Exam: General appearance: Alert in NAD pleasant Eyes: anicteric sclerae, moist conjunctivae; no lid-lag; PERRLA HENT: Normocephalic, Atraumatic; normal external ears, nares open, oropharynx clear. Neck: supple, tracheal midline, no JVD Lungs: CTA freida CV: RRR no murmur Abdomen: Soft, diffuse tenderness, bilateral drains with serous drainage Extremities: no edema, no cyanosis Skin: No rash. Psych: no agitated Neuro: alert and oriented x 3. Moving all extermities - Constitutional Vitals: Vital Signs Temp Pulse Resp BP Pulse Ox 99.0 F 86 22 126/79 99 03/17/21 07:56 03/17/21 07:56 03/17/21 07:56 03/17/21 07:56 03/17/21 09:09 Temperature -Last 24 Hours Temperature 99.0 F Temperature 98.4 F Temperature 98.4 F Temperature 98.4 F Temperature 98.3 F - Labs CBC & Chem 7: 03/17/21 10:33 03/14/21 19:34 Labs: Abnormal lab results 03/17/21 Range/Units 10:33 WBC 11.3 H (4.5-11.0) K/mm3 RBC 3.14 L (3.65-5.03) M/mm3 Hgb 9.6 L (10.1-14.3) gm/dl Hct 28.6 L (30.3-42.9) % Plt Count 568 H (140-440) K/mm3
[2021-03-17] MEDS ORDERED: VANCOMYCIN 1,500 MG in SODIUM CHLORIDE 0.9% 500 ML 500 ML IV SCH (14:00)
[2021-03-17] MEDS: PIPERACIL/TAZOBACTA 4.5/NS 100 4.5 GM/100 ML VIAL IV SCH ×2 (15:12→23:45)
[2021-03-17] MEDS: ACETAMINOPHEN 325 MG TAB PO PRN (15:40)
[2021-03-17] MEDS: ZOLPIDEM 5 MG TAB PO PRN (23:45)
[2021-03-18] MEDS: PIPERACIL/TAZOBACTA 4.5/NS 100 4.5 GM/100 ML VIAL IV SCH ×2 (09:20→17:00)
--- NOTE | 2021-03-18 09:27 | Cat Scan Report ---
CT ABDOMEN AND PELVIS WITHOUT AND WITH CONTRAST INDICATION / CLINICAL INFORMATION: pelvic abscess OMNI 300 100 ML. TECHNIQUE: Axial CT images were obtained through the abdomen and pelvis before and after 100 cc of Om nipaque [address] scans at this location are performed using CT dose reduction for ALA RA by means of automated exposure control. COMPARISON: 03/14/2021 FINDINGS: LOWER CHEST: There is platelike atelectasis versus scarring in the bilateral lung bases. There is mar ked trace bilateral pleural effusions. AORTA / ARTERIES: No significant abnormality. IVC / VEINS: No significant abnormality. LYMPH NODES: No significant adenopathy. COLON: Diverticulosis without acute inflammation. APPENDIX: No significant abnormality. STOMACH / SMALL BOWEL: No significant abnormality. PERITONEUM: No free fluid. There are few foci of intraperitoneal air, likely postprocedural. There kaminski s been interval placement of a pigtail catheter within the right lower pelvis. This catheter appears to have drained the largest abscess from previous CT. There is unchanged positioning of a pigtail cat heter within the left lower pelvis. As compared to previous CT there is persistence of a left hemipel vis abscess which does not appear significantly changed in size or shape. This abscess is just deep t o the anterior abdominal wall. There is also persistence of abscess within the prerectal space. This abscess appears decreased in size compared to previous CT. There is an additional abscess noted withi n the mesentery which appears slightly decreased in prominence compared to previous CT. LIVER: Along the inferior margin of the right hepatic lobe there is persistence of a rim-enhancing fl uid collection which appears slightly less prominent compared to previous CT. GALLBLADDER: No significant abnormality. BILE DUCTS: No significant abnormality. PANCREAS: No significant abnormality. SPLEEN: No significant abnormality. ADRENALS: No significant abnormality. RIGHT KIDNEY / URETER: No significant abnormality. LEFT KIDNEY / URETER: No significant abnormality. URINARY BLADDER: No significant abnormality. REPRODUCTIVE ORGANS: Uterus is absent. No significant adnexal abnormality. SKELETAL SYSTEM: No significant abnormality. ADDITIONAL FINDINGS: Subcutaneous emphysema, likely postprocedural IMPRESSION: 1. Interval decrease in size of several intra-abdominal abscesses as compared to previous CT. There i s persistence of a left hemipelvis abscess, mesenteric abscess and perirectal abscess. 2. Persistence, albeit slightly decreased, rim-enhancing fluid collection along the inferior margin o f the right hepatic lobe. This suggests resolving perihepatic fluid collection of unknown etiology. 3. Subcutaneous emphysema and intraperitoneal air felt to be postprocedural. Signer Name: Michael Mariscal DO Signed: 03/18/2021 9:23 AM Workstation Name: [id number]
--- NOTE | 2021-03-18 09:39 | Cat Scan Report ---
PLEASE SEE OPERATIVE REPORT ON 03-15-21 @11:17AM CONSUELOD
[2021-03-18] MEDS: DOCUSATE SODIUM 100 MG CAP PO SCH ×2 (11:33→22:25)
--- NOTE | 2021-03-18 13:23 | Progress Note ---
Assessment and Plan - Patient Problems (1) Hematoma Current Visit: Yes Status: Acute (2) Post-op pain Current Visit: No Status: Acute (3) Postoperative ileus Current Visit: No Status: Acute (4) Pelvic abscess Current Visit: Yes Status: Acute Plan to address problem: Having clinical improvement of pelvic abscess however has not completely resolved Continue IV antibiotic therapy Drains remain in place Subjective - Subjective Date of service: 03/18/21 Principal diagnosis: Postoperative abscess Interval history: Patient is pod #16 s/p robotic hysterectomy complicated by pelvic abscess. HD #5 with initiation of change in antibiotic regimen to cefepime, flagyl, and vanco. Follow-up CT scan today demonstrates improvement in pelvic abscess but has not had complete resolution. The patient is ambulating without difficulty. Her WBC count is trending towards normal. Will keep overnight for further treatment and observation. Patient reports: appetite normal, voiding normally, bowel movement Objective - Vital Signs Latest vital signs: Vital Signs Temp Pulse Resp BP Pulse Ox 03/18/21 12:13 98.9 F 82 18 127/81 99 03/18/21 08:07 98 03/18/21 07:49 98.4 F 81 18 123/82 99 03/18/21 04:42 99.0 F 86 18 119/80 96 03/18/21 01:03 99.6 F 86 20 121/70 96 03/17/21 20:46 98.8 F 83 20 120/73 98 03/17/21 20:30 98 03/17/21 17:16 99.1 F 92 H 20 115/80 96 03/17/21 15:40 16 Intake and Output 03/17/21 03/18/21 03/18/21 22:59 06:59 14:59 Intake Total 820 380 Output Total 40 Balance 820 340 Intake: IV 100 100 ZOSYN/NS 4.5GM/100ML 4.5 100 100 gm In 100 ml @ 200 mls/hr IV Q8HR [facility] Rx#: [id number] Oral 240 Intake, Free Water 480 280 Output: Drainage 40 Abdomen 30 Left 10 Other: Total, Intake Amount 240 Total, Output Amount 40 Voiding Method Toilet # Voids Void 1 1 # Bowel Movements 1 - Labs Labs: Abnormal lab results 03/17/21 Range/Units 19:01 C-Reactive Protein 10.60 H (0.00-1.30) mg/dL
--- NOTE | 2021-03-18 14:24 | Progress Note ---
Assessment and Plan Cultures: IR culture: E faecalis Blood culture: bacillus sp Assessment: 50-year-old female with no medical history status post robotic hysterectomy on 03/02/2021 admitted on 03/09/2021 secondary to worsening abdominal pain, associated with nausea and vomiting multiple times: #Sepsis: Fever and leukocytosis improving; CRP=23-->11. Source likely multiple intra-abdominal and intrapelvic abscesses. UA negative. #Multiple intra-abdominal and intrapelvic abscesses: initial CT with a pelvic collection 10cm. S/p IR drainage on 03/10/2021 Gram stain with positive rods, few PMNs. Repeat CT on 03/14/2021 showing no gross intra-abdominal and intrapelvic abscess, largest 9.5 x 5 x 10.9 cm on the right, there is another inferior right perihepatic collection noted. S/p IR second drain to the right on 03/15/[address] Repeat CT shows improvement however persistent pockets. #Acute diarrhea: since admission. Resolved. #Bacillus sp in blood culture: likely a contaminant Recommendations: Continue zosyn 4.5 g IV q8h (growing E faecalis in IR culture) Monitoring inpatient during the weekend given severe tenderness and some guarding on exam, despite improved CT, WBC and CRP Monitor abdominal pain Will follow. Discussed with SERVICE DELIVERY ANALYST attending. Nimo Christie MD Infectious Diseases Merch[employer]ise Pickup/Receiving Associate [facility] ([facility]) M [phone] O [phone] Subjective Date of service: 03/18/21 Principal diagnosis: Postoperative abscess Interval history: Feels okay however still complaining of abdominal pain gas sensation 6 out of 10. No fever. Objective - Exam Narrative Exam: General appearance: Alert in NAD pleasant Eyes: anicteric sclerae, moist conjunctivae; no lid-lag; PERRLA HENT: Normocephalic, Atraumatic; normal external ears, nares open, oropharynx clear. Neck: supple, tracheal midline, no JVD Lungs: CTA freida CV: RRR no murmur Abdomen: Soft, diffuse tenderness, guarding, bilateral drains with serous drainage Extremities: no edema, no cyanosis Skin: No rash. Psych: no agitated Neuro: alert and oriented x 3. Moving all extermities - Constitutional Vitals: Vital Signs Temp Pulse Resp BP Pulse Ox 98.9 F 82 18 127/81 99 09/17/21 12:13 03/18/21 12:13 03/18/21 12:13 03/18/21 12:13 03/18/21 12:13 Temperature -Last 24 Hours Temperature 98.9 F Temperature 98.4 F Temperature 99.0 F Temperature 99.6 F Temperature 98.8 F Temperature 99.1 F - Labs CBC & Chem 7: 03/17/21 10:33 03/14/21 19:34 Labs: Abnormal lab results 03/17/21 Range/Units 19:01 C-Reactive Protein 10.60 H (0.00-1.30) mg/dL
[2021-03-18] MEDS: SIMETHICONE 80 MG CHEW TAB PO PRN ×2 (17:37→22:25)
[2021-03-18] MEDS: ZOLPIDEM 5 MG TAB PO PRN (22:37)
[2021-03-19] MEDS: PIPERACIL/TAZOBACTA 4.5/NS 100 4.5 GM/100 ML VIAL IV SCH ×3 (01:01→17:05)
[2021-03-19] MEDS: SIMETHICONE 80 MG CHEW TAB PO PRN (09:47)
[2021-03-19] MEDS: DOCUSATE SODIUM 100 MG CAP PO SCH ×2 (09:48→21:36)
--- NOTE | 2021-03-19 11:39 | Progress Note ---
Assessment and Plan - Patient Problems (1) Hematoma Current Visit: Yes Status: Acute (2) Post-op pain Current Visit: No Status: Acute (3) Postoperative ileus Current Visit: No Status: Acute (4) Pelvic abscess Current Visit: Yes Status: Acute Plan to address problem: Continue current management. Patient demonstrating clinical improvement Subjective - Subjective Date of service: 03/19/21 Principal diagnosis: Postoperative abscess Interval history: Patient is pod #17 s/p robotic hysterectomy complicated by pelvic abscess. HD #6 with initiation of change in antibiotic regimen to cefepime, flagyl, and vanco. The patient reports having more flatus today. Her abdominal discomfort is improving. She remains afebrile. Will continue IV antibiotics. Patient is tolerating a regular diet. She is ambulating without difficulty. Patient reports: appetite normal, voiding normally, pain well controlled, flatus, bowel movement, ambulating normally Objective - Vital Signs Latest vital signs: Vital Signs Temp Pulse Resp BP BP Pulse Ox 03/19/21 09:46 73 99 03/19/21 08:00 17 99 03/19/21 07:41 98.3 F 18 129/75 03/19/21 03:59 98.3 F 63 20 116/76 76 L 03/19/21 01:07 98.0 F 82 20 111/68 97 03/18/21 20:25 98 03/18/21 20:15 98.2 F 75 20 123/68 89 03/18/21 16:44 99.8 F H 03/18/21 16:00 100 F H 03/18/21 15:37 99.4 F 98 H 18 123/86 100 03/18/21 12:13 98.9 F 82 18 127/81 99 Intake and Output 03/18/21 03/19/21 03/19/21 22:59 06:59 14:59 Intake Total 220 100 Output Total 10 10 Balance 210 90 Intake: IV 100 100 ZOSYN/NS 4.5GM/100ML 4.5 100 100 gm In 100 ml @ 200 mls/hr IV Q8HR [facility] Rx#: [id number] Oral 120 Output: Drainage 10 10 Abdomen 7 10 Left 3 0 Other: Total, Intake Amount 120 Total, Output Amount 10 10 Voiding Method Toilet Toilet # Voids Void 1
[2021-03-19] MEDS: ZOLPIDEM 5 MG TAB PO PRN (21:39)
--- NOTE | 2021-03-19 23:03 | Progress Note ---
Assessment and Plan Discussed with patient about left flank drainage for residual collection. This is the last collection amenable for drainage. Options include attempting care with antibiotics alone vs drainage. R/B/A discussed, plan for CT on sunday, if present, then can precede with drainage of left mid abdominal collection associated with severe pain on exam. Subjective Date of service: 03/19/21 Principal diagnosis: Postoperative abscess Interval history: Improving abdominal pain. Drains flushed and drain suction reapplied. Left mid abdominal tenderness. Objective - Constitutional Vitals: Vital Signs - 12hr 03/19/21 03/19/21 03/19/21 11:42 16:29 22:14 Temperature 98.4 F 97.9 F 99.2 F Pulse Rate 88 83 81 Respiratory 16 16 20 Rate Blood Pressure 119/69 131/81 114/68 O2 Sat by Pulse 99 98 99 Oximetry General appearance: Present: mild distress (guarding) - EENT Eyes: EOM intact ENT: hearing intact - Respiratory Respiratory effort: normal - Gastrointestinal General gastrointestinal: Present: tender (left mid abdominal pain) - Neurologic Neurologic: moves all extremities - Psychiatric Psychiatric: appropriate mood/affect, cooperative - Labs CBC & Chem 7: 03/17/21 10:33 03/14/21 19:34 Medications & Allergies - Medications Allergies/Adverse Reactions: Allergies acetaminophen [From Percocet] Allergy (Verified 02/25/21 16:51) Hives hydrocodone bitartrate [From Vicodin] Allergy (Verified 02/25/21 16:51) Swelling oxycodone HCl [From Percocet] Allergy (Verified 02/25/21 16:51) Hives Home Medications: Home Medications Medication Instructions Recorded Confirmed Last Taken Type Ondansetron [Zofran Odt] 4 mg PO Q8HR PRN #20 tab.rapdis 03/05/21 03/16/21 Un known Rx Polyethylene Glycol 3350 [Miralax] 1 cap PO BID 5 Days #1 container 03/05/21 03/16/21 Unknown Rx metroNIDAZOLE [Flagyl] 500 mg PO Q12HR #20 tab 03/14/21 Unknown Rx Active Medications: Generic Name Dose Route Start Last Admin Trade Name Freq PRN Reason Stop Dose Admin Acetaminophen 650 mg 03/09/21 12:46 03/17/21 15:40 Acetaminophen 325 Mg Tab PO 650 mg Q4H PRN Administration Pain, Mild (1-3) Bisacodyl 10 mg 03/17/21 10:00 03/17/21 15:42 Bisacodyl 10 Mg Rect Supp ME 10 mg QDAY PRN Administration Constipation Docusate Sodium 100 mg 03/09/21 22:00 03/19/21 21:36 Docusate Sodium 100 Mg Cap PO 100 mg BID [facility] Administration Hydromorphone HCl 2 mg 03/09/21 12:47 03/12/21 04:45 Hydromorphone 2 Mg Tab PO 2 mg Q4H PRN Administration Pain , Severe (7-10) Dextrose/Lactated Ringer's 1,000 mls @ 125 mls/hr 03/09/21 13:00 03/15/21 12:58 D5lr IV 125 mls/hr DIRECT [facility] Administration Sodium Chloride 500 mls @ 50 mls/hr 03/15/21 11:00 Nacl 0.9% 500 Ml IV DIRECT [facility] Piperacillin Sod/Tazobactam Sod 4.5 gm in 100 mls @ 200 mls/hr 03/17/21 14:00 03/19/21 17:35 Zosyn/Ns 4.5gm/100ml IV Infused Q8HR [facility] Infusion Protocol Ibuprofen 800 mg 03/09/21 12:47 03/16/21 14:58 Ibuprofen 800 Mg Tab PO 800 mg Q8H PRN Administration Pain, Moderate (4-6) Loperamide HCl 2 mg 03/14/21 08:00 Loperamide 2 Mg Cap PO Q2H PRN Diarrhea Morphine Sulfate 4 mg 03/09/21 12:47 03/11/21 22:01 Morphine 4 Mg/1 Ml Inj IV 4 mg Q4H PRN Administration Pain , Severe (7-10) Ondansetron HCl 4 mg 03/09/21 12:47 Ondansetron 4 Mg/2 Ml Inj IV Q8H PRN Nausea And Vomiting Simethicone 80 mg 03/18/21 16:20 03/19/21 09:47 Simethicone 80 Mg Chew Tab PO 80 mg Q6H PRN Administration Gas pain Zolpidem Tartrate 5 mg 03/13/21 17:09 03/19/21 21:39 Zolpidem 5 Mg Tab PO 5 mg QHS PRN Administration Sleep
[2021-03-20] MEDS: PIPERACIL/TAZOBACTA 4.5/NS 100 4.5 GM/100 ML VIAL IV SCH ×3 (00:14→18:04)
[2021-03-20] MEDS: SIMETHICONE 80 MG CHEW TAB PO PRN ×2 (05:45→18:03)
--- NOTE | 2021-03-20 10:02 | Progress Note ---
Assessment and Plan - Patient Problems (1) Hematoma Current Visit: Yes Status: Acute (2) Post-op pain Current Visit: No Status: Inactive (3) Postoperative ileus Current Visit: No Status: Inactive (4) Pelvic abscess Current Visit: Yes Status: Acute Plan to address problem: We will proceed with CT scan of abdomen and pelvis on Sunday with possible drainage of abscess Subjective - Subjective Date of service: 03/20/21 Principal diagnosis: Postoperative abscess Interval history: Patient is pod #18 s/p robotic hysterectomy complicated by pelvic abscess. HD #7 with initiation of change in antibiotic regimen to cefepime, flagyl, and vanco. Patient without any new complaints. Case is discussed with Dr. Barragan. We will proceed with reimaging on Sunday with possible drainage over the last significant abscess if it has not resolved Patient reports: appetite normal, voiding normally, pain well controlled, flatus Objective - Vital Signs Latest vital signs: Vital Signs Temp Pulse Resp BP Pulse Ox 03/20/21 08:01 98.2 F 90 18 111/77 98 03/20/21 03:05 98.2 F 77 20 115/72 98 03/19/21 22:14 99.2 F 81 20 114/68 99 03/19/21 19:45 97 03/19/21 16:29 97.9 F 83 16 131/81 98 03/19/21 11:42 98.4 F 88 16 119/69 99 Intake and Output 03/19/21 03/20/21 03/20/21 22:59 06:59 14:59 Intake Total 340 240 Output Total 31 11 Balance 309 -11 240 Intake: IV 100 ZOSYN/NS 4.5GM/100ML 4.5 100 gm In 100 ml @ 200 mls/hr IV Q8HR [facility] Rx#: [id number] Oral 240 240 Output: Drainage 30 10 Abdomen 15 5 Left 15 5 Urine 1 1 Void 1 1 Other: Total, Intake Amount 240 240 Total, Output Amount 1 10 Voiding Method Toilet # Voids Void 1
[2021-03-20] MEDS: IBUPROFEN 800 MG TAB PO PRN (18:03)
[2021-03-20] MEDS: ZOLPIDEM 5 MG TAB PO PRN (22:08)
[2021-03-20] MEDS: DOCUSATE SODIUM 100 MG CAP PO SCH (22:09)
[2021-03-21] MEDS: PIPERACIL/TAZOBACTA 4.5/NS 100 4.5 GM/100 ML VIAL IV SCH ×2 (00:20→07:29)
[2021-03-21] MEDS: DOCUSATE SODIUM 100 MG CAP PO SCH ×2 (00:33→21:41)
[2021-03-21] MEDS ORDERED: MIDAZOLAM 5 MG/5 ML INJ MDV IV SCH (10:00)
[2021-03-21] MEDS ORDERED: fentaNYL 100 MCG/2 ML INJ IV SCH (10:00)
--- NOTE | 2021-03-21 12:10 | Progress Note ---
Assessment and Plan - Patient Problems (1) Hematoma Current Visit: Yes Status: Acute (2) Post-op pain Current Visit: No Status: Inactive (3) Postoperative ileus Current Visit: No Status: Inactive (4) Pelvic abscess Current Visit: Yes Status: Acute Plan to address problem: slow resolution of symptoms scheduled to undergo CT guided drainage of remaining abscess consult general surgery Subjective - Subjective Date of service: 03/21/21 Principal diagnosis: Postoperative abscess Interval history: Patient is pod #19 s/p robotic hysterectomy complicated by pelvic abscess. HD #8 with initiation of change in antibiotic regimen to cefepime, flagyl, and vanco. Patient transported to CT before being seen. Had discussion with Dr. Willis who is concerned about possible bowel perforation. Will be changing antibiotic regimen. Also will be consulting general surgery Patient reports: appetite normal, voiding normally Objective - Vital Signs Latest vital signs: Vital Signs Temp Pulse Resp BP BP Pulse Ox 03/21/21 08:00 99.1 F 87 18 118/71 99 03/21/21 05:29 98.3 F 68 20 138/73 88 03/21/21 00:50 98.2 F 79 20 99/63 100 03/20/21 20:56 98.3 F 68 20 117/64 99 03/20/21 20:00 98 03/20/21 16:07 99.0 F 95 H 20 129/77 99 03/20/21 12:53 98.6 F 88 18 136/85 97 Intake and Output 03/20/21 03/21/21 03/21/21 22:59 06:59 14:59 Intake Total 940 100 Balance 940 100 Intake: IV 100 100 ZOSYN/NS 4.5GM/100ML 4.5 100 100 gm In 100 ml @ 200 mls/hr IV Q8HR [facility] Rx#: [id number] Oral 360 Intake, Free Water 480 Other: Total, Intake Amount 360 # Voids Void 2 1
[2021-03-21] MEDS ORDERED: HYDROmorphone 1 MG/1 ML INJ IV ONE (13:00)
[2021-03-21] MEDS ORDERED: HYDROmorphone 1 MG/1 ML INJ ONE (13:04)
--- NOTE | 2021-03-21 13:04 | Progress Note ---
Assessment and Plan Cultures: IR culture: E faecalis Blood culture: bacillus sp Assessment: 50-year-old female with no medical history status post robotic hysterectomy on 03/02/2021 admitted on 03/09/2021 secondary to worsening abdominal pain, associated with nausea and vomiting multiple times: #Sepsis: Fever and leukocytosis improving; CRP=23-->11. Source likely multiple intra-abdominal and intrapelvic abscesses. UA negative. #Multiple intra-abdominal and intrapelvic abscesses: initial CT with a pelvic collection 10cm. S/p IR drainage on 03/10/2021 Gram stain with positive rods, few PMNs. Repeat CT on 03/14/2021 showing no gross intra-abdominal and intrapelvic abscess, largest 9.5 x 5 x 10.9 cm on the right, there is another inferior right perihepatic collection noted. S/p IR second drain to the right on 03/15/[address]. Repeat CT shows improvement however persistent pockets. #Acute diarrhea: since admission. Resolved. #Bacillus sp in blood culture: likely a contaminant Recommendations: Repeat CBC and CRP F/u repeat CT IR considering more drains Surgical consult re: abdominal exam worsening despite broad spectrum abx eval for perforation Stop zosyn 4.5 g IV q8h Start meropenem and fluconazole Will follow. Discussed with FISHERMAN HELPER attending. Nimo Christie MD Infectious Diseases Upkeep Worker [facility] ([facility]) M [phone] O [phone] Subjective Date of service: 03/21/21 Principal diagnosis: Postoperative abscess Interval history: Remains c/o sdevere abdominal pain, crying, no fever. no N/V/D. Objective - Exam Narrative Exam: General appearance: Alert in NAD anxious Eyes: anicteric sclerae, moist conjunctivae; no lid-lag; PERRLA HENT: Normocephalic, Atraumatic; normal external ears, nares open, oropharynx clear. Neck: supple, tracheal midline, no JVD Lungs: CTA freida CV: RRR no murmur Abdomen: Soft, diffuse tenderness, guarding, bilateral drains with serous drainage Extremities: no edema, no cyanosis Skin: No rash. Psych: anxious Neuro: alert and oriented x 3. Moving all extermities - Constitutional Vitals: Vital Signs Temp Pulse Resp BP Pulse Ox 99.1 F 87 18 118/71 99 03/21/21 08:00 03/21/21 08:00 03/21/21 08:00 03/21/21 08:00 03/21/21 08:00 Temperature -Last 24 Hours Temperature 99.1 F Temperature 98.3 F Temperature 98.2 F Temperature 98.3 F Temperature 99.0 F - Labs CBC & Chem 7: 03/17/21 10:33 03/14/21 19:34
[2021-03-21] MEDS ORDERED: MEPERIDINE 25 MG/1 ML INJ ONE (13:25)
[2021-03-21] MEDS ORDERED: MEPERIDINE 25 MG/1 ML INJ IV PRN (13:30)
--- NOTE | 2021-03-21 13:47 | Cat Scan Report ---
CT ABDOMEN AND PELVIS WITH CONTRAST INDICATION / CLINICAL INFORMATION: Follow-up of abdominal and pelvic fluid collections. TECHNIQUE: Axial CT images were obtained through the abdomen and pelvis after 100 cc Omnipaque [address] scans at this location are performed using CT dose reduction for ALARA by means of automated exposure control. COMPARISON: CT abdomen and pelvis with and without contrast from 03/18/2021. FINDINGS: LOWER CHEST: Trace pleural effusions are noted with bibasilar atelectasis. No other significant abnor mality. LIVER: No significant abnormality. GALLBLADDER: No significant abnormality. BILE DUCTS: No significant abnormality. PANCREAS: No significant abnormality. SPLEEN: No significant abnormality. ADRENALS: No significant abnormality. KIDNEYS / URETERS: No significant abnormality. STOMACH / SMALL BOWEL: No significant abnormality. COLON: No significant abnormality. APPENDIX: No significant abnormality. PERITONEUM: Trace free fluid is again seen dependently along the pelvis. No free air. Multiple abdomi nal and pelvic fluid collection/abscesses remain, measuring up to 6.2 x 3.3 cm just posterior and sup erior to the bladder on image 142 of series 2, previously 5.8 x 4.7 cm. The remaining fluid collectio n/abscesses are either unchanged or slightly smaller. A collection/abscess located along the inferior margin of the right hepatic lobe measures 3.9 x 1.4 cm on image 78 of series 2, previously 4.3 x 1.7 cm. A left lower quadrant abscess/collection measures 4.5 x 2.6 cm on image 122 of series 2, previou sly 4.8 x 2.8 cm. Previously placed pigtail drainage catheters along the pelvis anteriorly are in sta ble position. No organized ramble collection/abscess is seen surrounding the pigtail of either cathet er. No new fluid collection/abscess is seen. LYMPH NODES: No significant adenopathy. AORTA / ARTERIES: No significant abnormality. IVC / VEINS: No significant abnormality. URINARY BLADDER: No significant abnormality. REPRODUCTIVE ORGANS: Uterus is absent. No significant adnexal abnormality. ADDITIONAL FINDINGS: Generalized subcutaneous edema has improved. Numerous nodules are again seen andrea ng the gluteal regions, possibly representing sequela of prior injections. BONES: No significant abnormality. IMPRESSION: 1. Multiple persistent fluid collection/abscesses in the abdomen and pelvis as detailed above with th e largest located adjacent to the bladder measuring 6.2 x 3.3 cm. 2. Stable positioning of drainage catheters without significant collection/abscesses surrounding eith er catheter pigtail. Repositioning of the left pigtail drainage catheter may result in drainage of th e dominant collection/abscess located adjacent to the bladder. Signer Name: Jarad Richardson MD Signed: 03/21/2021 1:42 PM Workstation Name: [id number]
[2021-03-21] MEDS ORDERED: MEROPENEM 1,000 MG in SODIUM CHLORIDE 0.9% 100 ML IV SCH (14:00)
--- NOTE | 2021-03-21 14:10 | Operative Report ---
Operative Report Operative Report: EXAM: CT-guided placement of a 8 [place] APD percutaneous the drain in the left abdomen INDICATION: Status post hysterectomy with abdominal pain and fluid collection. DATE: 03/21/2021 MARGIN ANALYST: MALI FUENTES MD PROCEDURE: Following an explanation of the risks, benefits and alternatives; written informed consent was obtained. The patient was brought to the CT suite and placed in supine position on the gantry. Initial director of billing images of the abdomen and pelvis were performed and an appropriate access site was chosen along the patient left flank. The patient was prepped and draped in the usual sterile fashion. 1% lidocaine was used for anesthesia at the skin surface and along the tract of the catheter. Using intermittent CT guidance, a 10 cm 18-gauge trocar needle was advanced into the left mid abdominal fluid collection. There is prompt return of pinkish purulent fluid. A 0.035 guidewire was then advanced through the needle and coiled within the fluid collection. The needle was removed and following serial dilation over the guidewire, a 8 [place] APD drainage catheter was advanced over the guidewire and the guidewire removed. The pigtail was formed within the fluid collection and imaging obtained to document appropriate positioning. A total of 15 mL of pinkish purulent fluid was then aspirated. A sample was sent for laboratory analysis. Drain secured with 2-0 silk suture. Stat lock device attached. Drainage bag attached. Final CT scan demonstrated resolution of the fluid. There are a few much smaller fluid collections in the abdomen. These will hopefully improve with antibiotics. The patient tolerated the procedure well. After procedure she had mild rigors which were treated with demerol 25 mg IV, and 1 L NS bolus. Rigors resolved. Continuous cardiopulmonary monitoring is utilized. IMPRESSION: CT-guided placement of an 8 [place]an drainage catheter in abdomen abscess with 15 mL of pinkish purulent fluid aspirated. Sample sent for laboratory analysis.
[2021-03-21] MEDS: MEROPENEM/NS 1 GRAM/100 ML 1 GRAM/100 ML BAG IV SCH ×2 (14:42→21:42)
--- NOTE | 2021-03-21 15:49 | Consultation ---
History of Present Illness Consult date: 03/21/21 Reason for consult: abdominal pain - History of present illness History of present illness: 50 year old female who is POD#19 robotic hysterectomy for fibroids. Presented to hospital about a week post op with worsening abdominal pain and abdominal fluid collections seen on CAT scan. Patient had febrile episodes and leukocytosis. Infectious disease and interventional radiology were consulted. She was started antibiotics and had 3 percutaneous IR guided abdominal drain placements, with the last one today. I spoke with Dr. Perea radiology who said that overall her collections are decreasing in size, however there are some smaller collections that are unable to be accessed via percutaneous drainage. Today the patient says that she is feeling better compared to admission, and this is the best that she has felt since being admitted. Patient denies any nausea or vomiting today, but says that she has passed some flatus. Past History Past Surgical History: hysterectomy, Other (Abdominal plasty with tummy tuck) Social history: no significant social history Medications and Allergies Allergies Allergy/AdvReac Type Severity Reaction Status Date / Time acetaminophen [From Percocet] Allergy Hives Verified 02/25/21 16:51 hydrocodone bitartrate Allergy Swelling Verified 02/25/21 16:51 [From Vicodin] oxycodone HCl [From Percocet] Allergy Hives Verified 02/25/21 16:51 Home Medications Medication Instructions Recorded Confirmed Last Taken Type Ondansetron [Zofran Odt] 4 mg PO Q8HR PRN #20 tab.rapdis 03/05/21 03/16/21 Unknown Rx Polyethylene Glycol 3350 [Miralax] 1 cap PO BID 5 Days #1 container 03/05/21 03/16/21 Unknown Rx metroNIDAZOLE [Flagyl] 500 mg PO Q12HR #20 tab 03/14/21 Unknown Rx Active Meds: Active Medications Acetaminophen (Acetaminophen 325 Mg Tab) 650 mg PO Q4H PRN PRN Reason: Pain, Mild (1-3) Last Admin: 03/17/21 15:40 Dose: 650 mg Documented by: Bisacodyl (Bisacodyl 10 Mg Rect Supp) 10 mg RI QDAY PRN PRN Reason: Constipation Last Admin: 03/17/21 15:42 Dose: 10 mg Documented by: Docusate Sodium (Docusate Sodium 100 Mg Cap) 100 mg PO BID KENNEDI Last Admin: 03/21/21 00:33 Dose: Not Given Documented by: Hydromorphone HCl (Hydromorphone 2 Mg Tab) 2 mg PO Q4H PRN PRN Reason: Pain , Severe (7-10) Last Admin: 03/12/21 04:45 Dose: 2 mg Documented by: Dextrose/Lactated Ringer's (D5lr) 1,000 mls @ 125 mls/hr IV DIRECT KENNEDI Last Admin: 03/15/21 12:58 Dose: 125 mls/hr Documented by: Sodium Chloride (Nacl 0.9% 500 Ml) 500 mls @ 50 mls/hr IV DIRECT KENNEDI Fluconazole (Diflucan) 200 mls @ 100 mls/hr IV Q24HR KENNEDI; Protocol MEROPENEM/NS 1 GRAM/100 ML (Merrem/Ns 1 Gram/100 Ml) 1 gram in 100 mls @ 100 mls/hr IV Q8H KENNEDI Last Admin: 03/21/21 14:42 Dose: 100 mls/hr Documented by: Ibuprofen (Ibuprofen 800 Mg Tab) 800 mg PO Q8H PRN PRN Reason: Pain, Moderate (4-6) Last Admin: 03/20/21 18:03 Dose: 800 mg Documented by: Loperamide HCl (Loperamide 2 Mg Cap) 2 mg PO Q2H PRN PRN Reason: Diarrhea Meperidine HCl (Meperidine 25 Mg/1 Ml Inj) 25 mg IV ONCE PRN PRN Reason: Shivering Last Admin: 03/21/21 13:30 Dose: 25 mg Documented by: Morphine Sulfate (Morphine 4 Mg/1 Ml Inj) 4 mg IV Q4H PRN PRN Reason: Pain , Severe (7-10) Last Admin: 03/11/21 22:01 Dose: 4 mg Documented by: Ondansetron HCl (Ondansetron 4 Mg/2 Ml Inj) 4 mg IV Q8H PRN PRN Reason: Nausea And Vomiting Simethicone (Simethicone 80 Mg Chew Tab) 80 mg PO Q6H PRN PRN Reason: Gas pain Last Admin: 03/20/21 18:03 Dose: 80 mg Documented by: Zolpidem Tartrate (Zolpidem 5 Mg Tab) 5 mg PO QHS PRN PRN Reason: Sleep Last Admin: 03/20/21 22:08 Dose: 5 mg Documented by: Review of Systems All systems: negative - Gastrointestinal abdominal pain, excessive gas, no nausea, no vomiting - Genitourinary Genitourinary: abnormal vaginal bleeding Menstruation: post hysterectomy Exam Vital Signs Resp 19 03/09/21 15:50 - General physical appearance Positive: well developed, no distress, no pain - Respiratory Positive: normal expansion, normal respiratory effort - Cardiovascular Heart Sounds: Present: S1 & S2 - Extremities Extremity abnormal: edema, other (bilateral foot and ankle edema) - Abdomen Abdomen: Present: soft, surgical scars, other (well healed abdominoplasty scars, soft, two pigtail catheters on the left, one on the left, mild tenderness to palpation generally. All drains with serous fluid). Absent: guarding, rigid Results - Labs 03/17/21 10:33 03/14/21 19:34 - Imaging CT scan - abdomen: report reviewed, image reviewed CT scan - pelvis: report reviewed, image reviewed Assessment and Plan 50-year-old female with multiple intra-abdominal fluid collections suspected to be abscesses almost 3 weeks status post robotic hysterectomy. Afebrile and stable on antibiotics status post percutaneous drain placement with improving leukocytosis. Unlikely to have an active bowel injury as there is no increase in free air, or free fluid on multiple CT scans. There is a possibility there was a small bowel injury at some point however, should there had been one it is likely sealed and contained at this current time. There is no plan for surgical intervention at this point, as the risk outweigh the benefits. At this time in the postoperative period, especially with the significant intra-abdominal inflammation, her small bowel and colon are likely very friable causing increased likelihood of bowel injury should she need abdominal exploration, even laparoscopically. As long as she is continuing to clinically improve, and all large drainable collections are evacuated, will continue percutaneous drainage and IV antibiotics. We will continue to follow. Spoke with patient about her diagnosis, present treatment and postoperative course. Patient expressed understanding and rationale for the plan.
[2021-03-21] MEDS: FLUCONAZOLE 400 MG 200 ML IV SCH (16:01)
[2021-03-21 18:28] LABS: Basophils # (Auto) 0.1 K/mm3 (0.0-0.1); Basophils % (Auto) 0.7 % (0.0-1.8); Eosinophils # (Auto) 0.1 K/mm3 (0.0-0.4); Eosinophils % (Auto) 0.9 % (0.0-4.3); Hematocrit 28.2 % (30.3-42.9); Hemoglobin 9.4 gm/dl (10.1-14.3); Lymphocytes # (Auto) 1.7 K/mm3 (1.2-5.4); Lymphocytes % (Auto) 14.8 % (13.4-35.0); Mean Corpuscular HGB Conc 33 % (30-34); Mean Corpuscular Volume 92 fl (79-97); Monocytes # (Auto) 1.2 K/mm3 (0.0-0.8); Monocytes % (Auto) 10.3 % (0.0-7.3); Platelet Count 651 K/mm3 (140-440); Red Blood Count 3.07 M/mm3 (3.65-5.03); Red Cell Distribution Width 14.7 % (13.2-15.2)
[2021-03-21] MEDS: ZOLPIDEM 5 MG TAB PO PRN (21:41)
[2021-03-22] MEDS: MEROPENEM/NS 1 GRAM/100 ML 1 GRAM/100 ML BAG IV SCH ×3 (05:46→22:36)
[2021-03-22] MEDS: IBUPROFEN 800 MG TAB PO PRN ×3 (06:03→18:49)
[2021-03-22] MEDS: DOCUSATE SODIUM 100 MG CAP PO SCH ×2 (09:10→22:37)
[2021-03-22] MEDS: SIMETHICONE 80 MG CHEW TAB PO PRN (10:50)
--- NOTE | 2021-03-22 12:20 | Progress Note ---
Assessment and Plan Cultures: IR culture: E faecalis Blood culture: bacillus sp Assessment: 50-year-old female with no medical history status post robotic hysterectomy on 03/02/2021 admitted on 03/09/2021 secondary to worsening abdominal pain, associated with nausea and vomiting multiple times: #Sepsis: Fever and leukocytosis improving; CRP=23-->11. Source likely multiple intra-abdominal and intrapelvic abscesses. UA negative. #Multiple intra-abdominal and intrapelvic abscesses: initial CT with a pelvic collection 10cm. S/p IR drainage on 03/10/2021 Gram stain with positive rods, few PMNs. Repeat CT on 03/14/2021 showing no gross intra-abdominal and intrapelvic abscess, largest 9.5 x 5 x 10.9 cm on the right, there is another inferior right perihepatic collection noted. S/p IR second drain to the right on 03/15/[address]. Repeat CT shows improvement however persistent pockets. S/p IR 03/21 again. #Acute diarrhea: since admission. Resolved. #Bacillus sp in blood culture: likely a contaminant Recommendations: Per surgery no indication for surgery Ok to dc on zosyn 3.375 g IV q 8 hour and fluconazole 200 mg po daily total 14 days until 04/04/2021, may need to be extended. Sent to rn field case manager. Repeat CT abd and pelvis on 04/[address] midline ID clinic on 04/05 Will sign off call us if questions Nimo Christie MD Infectious Diseases Block Layer [facility] M [phone] O [phone] Subjective Date of service: 03/22/21 Principal diagnosis: Postoperative abscess Interval history: Feels better, abd pain os better 5 of 10. No fever. Objective - Exam Narrative Exam: General appearance: Alert in NAD anxious Eyes: anicteric sclerae, moist conjunctivae; no lid-lag; PERRLA HENT: Normocephalic, Atraumatic; normal external ears, nares open, oropharynx clear. Neck: supple, tracheal midline, no JVD Lungs: CTA freida CV: RRR no murmur Abdomen: Soft, diffuse tenderness, guarding, bilateral drains with serous drainage Extremities: no edema, no cyanosis Skin: No rash. Psych: anxious Neuro: alert and oriented x 3. Moving all extermities - Constitutional Vitals: Vital Signs Temp Pulse Resp BP Pulse Ox 98.9 F 83 18 117/73 97 03/22/21 07:26 03/22/21 07:26 03/22/21 07:26 03/22/21 07:26 03/22/21 10:45 Temperature -Last 24 Hours Temperature 98.9 F Temperature 97.3 F Temperature 97.5 F Temperature 99.6 F Temperature 98.7 F - Labs CBC & Chem 7: 03/21/21 17:38 03/14/21 19:34 Labs: Abnormal lab results 03/21/21 Range/Units 17:38 WBC 11.3 H (4.5-11.0) K/mm3 RBC 3.07 L (3.65-5.03) M/mm3 Hgb 9.4 L (10.1-14.3) gm/dl Hct 28.2 L (30.3-42.9) % Plt Count 651 H (140-440) K/mm3 Hood % (Auto) 10.3 H (0.0-7.3) % Hood # (Auto) 1.2 H (0.0-0.8) K/mm3 Seg Neutrophils % 73.3 H (40.0-70.0) % Seg Neutrophils # 8.3 H (1.8-7.7) K/mm3
--- NOTE | 2021-03-22 17:26 | Progress Note ---
Assessment and Plan - Patient Problems (1) Hematoma Current Visit: Yes Status: Acute (2) Post-op pain Current Visit: No Status: Inactive (3) Postoperative ileus Current Visit: No Status: Inactive (4) Pelvic abscess Current Visit: Yes Status: Acute Subjective - Subjective Date of service: 03/22/21 Principal diagnosis: Postoperative abscess Interval history: Patient is pod #20 s/p robotic hysterectomy complicated by pelvic abscess. HD #9 with initiation of change in antibiotic regimen to cefepime, flagyl, and vanco. Objective - Vital Signs Latest vital signs: Vital Signs Temp Pulse Resp BP Pulse Ox 03/22/21 10:45 97 03/22/21 07:30 97 03/22/21 07:26 98.9 F 83 18 117/73 100 03/22/21 04:49 97.3 F L 83 18 116/81 98 03/22/21 01:06 97.5 F L 71 18 98/56 98 03/21/21 20:34 99.6 F 93 H 18 101/57 98 03/21/21 20:00 97 Intake and Output 03/22/21 03/22/21 03/22/21 06:59 14:59 22:59 Intake Total 380 20 Output Total 16 Balance 364 20 Intake: IV 100 20 Left Upper arm 20 MERREM/NS 1 GRAM/100 ML 1 100 gram In 100 ml @ 100 mls /hr IV Q8H [facility] Rx#: [id number] Intake, Free Water 280 Output: Drainage 16 Abdomen 8 Left 0 Left Lateral Abdomen 8 Other: Total, Output Amount 16 Voiding Method Toilet # Voids Void 1 - Labs Labs: Abnormal lab results 03/21/21 03/22/21 Range/Units 17:38 15:57 WBC 11.3 H (4.5-11.0) K/mm3 RBC 3.07 L (3.65-5.03) M/mm3 Hgb 9.4 L (10.1-14.3) gm/dl Hct 28.2 L (30.3-42.9) % Plt Count 651 H (140-440) K/mm3 [place] % (Auto) 10.3 H (0.0-7.3) % [place] # (Auto) 1.2 H (0.0-0.8) K/mm3 Seg Neutrophils % 73.3 H (40.0-70.0) % Seg Neutrophils # 8.3 H (1.8-7.7) K/mm3 C-Reactive Protein 8.50 H (0.00-1.30) mg/dL
[2021-03-22] MEDS: FLUCONAZOLE 400 MG 200 ML IV SCH (17:37)
[2021-03-22] MEDS: ACETAMINOPHEN 325 MG TAB PO PRN (20:40)
[2021-03-22] MEDS: ZOLPIDEM 5 MG TAB PO PRN (22:37)
[2021-03-23] MEDS: MEROPENEM/NS 1 GRAM/100 ML 1 GRAM/100 ML BAG IV SCH (05:41)
[2021-03-23] MEDS: IBUPROFEN 800 MG TAB PO PRN ×2 (05:42→05:43)
[2021-03-23 09:37] VITALS: BP 113/79
--- NOTE | 2021-03-23 09:44 | Progress Note ---
Assessment and Plan - Patient Problems (1) Hematoma Current Visit: Yes Status: Acute (2) Pelvic abscess Current Visit: Yes Status: Acute Plan to address problem: Plan to discharge home with two weeks of IV antibiotics per ID recommendation and repeat imaging on 04/01/21 and ID appt on 04/05/21 Subjective - Subjective Date of service: 03/23/21 Principal diagnosis: Postoperative abscess Interval history: Patient reports feeling well today. She had a midline catheter placed yesterday without issue. Her IV antibiotics are to be administered at home and case management indicates that those services are ready today. 1 drain was removed yesterday. The patient has 2 drains in situ in the lower abdomen. Patient reports: appetite normal, voiding normally, pain well controlled, flatus, ambulating normally Objective - Vital Signs Latest vital signs: Vital Signs Temp Pulse Resp BP BP Pulse Ox 03/23/21 07:54 98.6 F 89 18 113/79 99 03/23/21 04:30 98.7 F 88 16 119/79 03/23/21 00:50 98.3 F 77 16 120/75 96 03/22/21 20:10 97 03/22/21 20:09 100.3 F H 89 18 138/81 97 03/22/21 17:00 98.6 F 90 18 129/80 100 03/22/21 12:30 98.7 F 84 18 136/85 100 03/22/21 10:45 97 Intake and Output 03/22/21 03/23/21 03/23/21 22:59 06:59 14:59 Intake Total 400 100 600 Output Total 24 10 Balance 376 90 600 Intake: IV 100 100 MERREM/NS 1 GRAM/100 ML 1 100 100 gram In 100 ml @ 100 mls /hr IV Q8H [facility] Rx#: [id number] Oral 240 Intake, Free Water 300 360 Output: Drainage 24 10 Abdomen 3 Left 1 0 Left Lateral Abdomen 20 10 Other: Total, Intake Amount 240 Total, Output Amount 10 10 Voiding Method Toilet # Voids Void 1 1 # Bowel Movements 1 - Exam Breasts: Present: deferred Abdomen: Present: soft Incision: Present: intact, other ([address] draining purulent, pink tinged fluid ) - Labs Labs: Abnormal lab results 03/22/21 Range/Units 15:57 C-Reactive Protein 8.50 H (0.00-1.30) mg/dL
--- NOTE | 2021-03-23 09:46 | Discharge Summary ---
Providers - Providers Date of Admission: 03/09/21 16:22 Date of discharge: 03/23/21 Attending physician: DENNIS RETANA 03/14/21 12:30 Consult to Physician [CONS] Routine Comment: Consulting Provider: NIMO DAVALOS Physician Instructions: Reason For Exam: pelvic abscess 03/21/21 12:10 Consult to Physician [CONS] Routine Comment: Consulting Provider: AMITA BARRETT Physician Instructions: concern for bowel perforation Reason For Exam: pelvic abscess 03/22/21 12:20 Consult to Case Management [CONS] Stat Services Needed at Discharge: Other Notified:: documentation billing clerk Additional Physician Instructions: [facility] ([facility]) [address] [place] [address] OUTPATIENT PARENTERAL ANTIBIOTIC THERAPY (OPAT) ORDERS Diagnoses: multiple intraabdominal and pelvic abscesses after Administer: zosyn 3.375 g IV q 8 hour and fluconazole 200 mg po daily total 14 days until 04/04/2021, may need to be extended. Repeat CT abd and pelvis with contrast on 04/01. ID clinic f/u on 04/05. Line: Maintain IV access with weekly dressing changes and locks per protocol. Labs: Every Sunday CBC, AST, ALT, Creatinine,Please fax results to [phone] and call [phone] for critical lab results. Nimo Willis MD Infectious Diseases Loss Prevention Detective [facility] ([facility]) O: [phone] F: [phone] 03/22/21 12:22 Midline [Consult to PICC Line RN] [CONS] Urgent Reason For Exam: IV abx for 2 weeks Type Line:: Midline Primary care physician: STATOR WINDER Hospitalization Reason for admission: other (pelvic abscesses ) Procedure: other (3 CT-guided abscess drainage procedures) Procedure details: Please see operative reports Incision: intact Discharge diagnosis: other Hospital course: The patient was admitted for postoperative pelvic abscesses. She underwent 3 CT-guided drainage procedures. She also had an infectious disease consult to optimize her antibiotic regimen. On hospital day #13 she met criteria for discharge. She will follow-up in 1 week in the office with Dr. Saint Lewis. She will have repeat imaging on April 01, 2021 and will have an infectious disease appointment on April 05, 2021. Condition at discharge: Stable Disposition: 01 HOME / SELF CARE / HOMELESS - Discharge Diagnoses (1) Hematoma Status: Acute (2) Pelvic abscess Status: Acute Plan - Discharge Medications Prescriptions: Fluconazole [Diflucan TAB] 200 mg PO QDAY #14 tablet metroNIDAZOLE [Flagyl] 500 mg PO Q12HR #20 tab - Provider Discharge Summary Activity: no sex for 6 weeks, no heavy lifting 4 weeks, no strenuous exercise Diet: routine Instructions: routine Additional instructions: [] Smoking cessation referral if applicable(refer to patient education folder for contact #) [] Refer to [facility]'s [facility] Booklet Call your doctor immediately for: * Fever > 100.5 * Heavy vaginal bleeding ( >1 pad per hour) * Severe persistent headache * Shortness of breath * Reddened, hot, painful area to leg or breast * Drainage or odor from incision. * Keep incision clean and dry at all times and follow doctor's instructions regarding bathing/showering - Follow up plan Follow up: PRIMARY MD FREDERIC [Primary Care Provider] - 7 Days DENNIS RETANA MD [Staff Physician] - 7 Days
--- NOTE | 2021-03-30 12:51 | Cat Scan Report ---
PLEASE SEE OPERATIVE REPORT ON 03/21/21 @14;10 MTDD
== END 2021-03-23 10:45 | disposition home health service (06) | DRG 919 ==
LOC: 3A 11:33 → UNDOADMIN 11:33 → OB 16:22
PROVIDERS: ADMIT Obstetrics & Gynecology; ATTEND Obstetrics & Gynecology
PROC: 0W9J3ZZ Drainage of Pelvic Cavity, Percutaneous Approach (ICD-10-PCS; principal; 2021-03-10)
PROC: 0W9J30Z Drainage of Pelvic Cavity with Drainage Device, Percutaneous Approach (ICD-10-PCS; 2021-03-15)
PROC: 0W9J30Z Drainage of Pelvic Cavity with Drainage Device, Percutaneous Approach (ICD-10-PCS; 2021-03-21)
DX: L76.32 Postprocedural hematoma of skin and subcutaneous tissue following other procedure (principal); A41.9 Sepsis, unspecified organism; L02.91 Cutaneous abscess, unspecified; K56.7 Ileus, unspecified; L02.211 Cutaneous abscess of abdominal wall; X58.XXXA Exposure to other specified factors, initial encounter; Y83.6 Removal of other organ (partial) (total) as the cause of abnormal reaction of the patient, or of later complication, without mention of misadventure at the time of the procedure; Z88.8 Allergy status to other drugs, medicaments and biological substances; Z20.822 Contact with and (suspected) exposure to COVID-19; Z90.710 Acquired absence of both cervix and uterus
CPT/HCPCS: 10160; 36415; 74177; 74178; 77012; 80053; 80202; 81001; 82565; 85025; 85027; 86140; 87040; 87045; 87076; 87116; 87186; 87493; 93970; G0378; C1769; J0295; J0690; J0692; J1170; J1450; J1885; J2175; J2185; J2250; J2270; J2543; J3010; J3370; J7030; J7040; J7050; J7121; Q9967; U0003

== ENCOUNTER 2021-04-02 15:08 | Emergency (ER) | payer OTHER ==
[2021-04-02 15:59] VITALS: BP 140/79
--- NOTE | 2021-04-02 16:22 | Emergency Department Report ---
ED General Adult HPI - General Chief complaint: Pain General Stated complaint: MIDLINE LEAKING Time Seen by Provider: 04/02/21 16:06 Source: patient Mode of arrival: Ambulatory Limitations: No Limitations - History of Present Illness Initial comments: Patient is a 50-year-old female presents emergency room complaints of a complication of her PICC line. Patient had a hysterectomy which was complicated by multiple abdominal abscesses requiring drainage. She is supposed to have a PICC line in place until 04/04/2021 for continued IV antibiotics and will be reassessed for determination of antibiotic therapy cessation with infectious disease on 04/05/2021. Patient states today after her morning antibiotic dose that she attempted to flush her PICC line but reports that the saline was draining around the line. She denies any fever, increasing pain, drainage, vomiting, diarrhea, chills. She has an allergy to hydrocodone and oxycodone. Severity scale (0 -10): 0 - Related Data Previous Rx's Medication Instructions Recorded Last Taken Type Ondansetron [Zofran Odt] 4 mg PO Q8HR PRN #20 tab.rapdis 03/05/21 Unknown Rx Polyethylene Glycol 3350 [Miralax] 1 cap PO BID 5 Days #1 container 03/05/21 Unknown Rx metroNIDAZOLE [Flagyl] 500 mg PO Q12HR #20 tab 03/14/21 Unknown Rx Fluconazole [Diflucan TAB] 200 mg PO QDAY #14 tablet 03/22/21 Unknown Rx Allergies Allergy/AdvReac Type Severity Reaction Status Date / Time acetaminophen [From Percocet] Allergy Hives Verified 02/25/21 16:51 hydrocodone bitartrate Allergy Swelling Verified 02/25/21 16:51 [From Vicodin] oxycodone HCl [From Percocet] Allergy Hives Verified 02/25/21 16:51 ED Review of Systems ROS: Stated complaint: MIDLINE LEAKING Other details as noted in HPI Comment: All other systems reviewed and negative ED Past Medical Hx - Past Medical History Hx Hypertension: No Hx Deep Vein Thrombosis: No Hx Liver Disease: No Hx Renal Disease: No Hx Tuberculosis: Yes (Treated, CXR negative) Additional medical history: Uterine Fibroids - Surgical History Hx Pacemaker: No Hx Internal Defibrillator: No Additional Surgical History: screws in right knee, X 2 hysterectomy - Social History Smoking Status: Current Some Day Smoker - Medications Home Medications: Home Medications Medication Instructions Recorded Confirmed Last Taken Type Ondansetron [Zofran Odt] 4 mg PO Q8HR PRN #20 tab.rapdis 03/05/21 03/16/21 Unknown Rx Polyethylene Glycol 3350 [Miralax] 1 cap PO BID 5 Days #1 container 03/05/21 03/16/21 Unknown Rx metroNIDAZOLE [Flagyl] 500 mg PO Q12HR #20 tab 03/14/21 Unknown Rx Fluconazole [Diflucan TAB] 200 mg PO QDAY #14 tablet 03/22/21 Unknown Rx ED Physical Exam - General Limitations: No Limitations General appearance: alert, in no apparent distress - Head Head exam: Present: atraumatic, normocephalic - Eye Eye exam: Present: normal appearance - ENT ENT exam: Present: mucous membranes moist - Respiratory Respiratory exam: Absent: respiratory distress, accessory muscle use - Neurological Exam Neurological exam: Present: alert, oriented X3 - Psychiatric Psychiatric exam: Present: normal affect, normal mood - Skin Skin exam: Present: warm, dry, intact, other (there is a PICC line present to the left upper arm, no edema, no erythema, no increased warmth, no drainage) ED Course Vital Signs 04/02/21 15:56 Temperature 98.3 F Pulse Rate 85 Respiratory 18 Rate Blood Pressure 140/79 [Right] O2 Sat by Pulse 100 Oximetry - Reevaluation(s) Reevaluation #1: 04/02/21 16:40 PICC team is not present during the weekend to assess patient's line, discussed case with Dr. Tompkins, ER attending who advised to speak with infectious disease to see if patient could go home with a peripheral line given that she only needs continued IV antibiotics to finish on 04/04/2021. - Consultations Consultation #1: 04/02/21 4:54 PM Animal Pathologist paged infectious disease in school suspension coordinator, awaiting callback 04/02/21 6:00PM [place] page infectious disease in school suspension coordinator, awaiting callback 04/02/21 7:00PM Spoke to Dr. Willis, infectious disease, regarding patient presentation and results, she advised can write patient Augmentin twice daily for 3 days and to have patient keep her appointment for April 05 04/02/21 19:05 Patient initially left the ER AMA due to the wait time, I was able to speak with patient on the telephone and she was able to identify herself and I advised patient that we were going to change her antibiotics and she wanted me to call into the [facility] in [facility] on [facility] and she knows to keep her appointment with infectious disease on 04/05/2021 and to return to emergency room for any new or worsening symptoms. ED Medical Decision Making - Medical Decision Making Patient is a 50-year-old female presents emergency room complaints of a complication of her PICC line. Patient had a hysterectomy which was complicated by multiple abdominal abscesses requiring drainage. She is supposed to have a PICC line in place until 04/04/2021 for continued IV antibiotics and will be reassessed for determination of antibiotic therapy cessation with infectious disease on 04/05/2021. Patient states today after her morning antibiotic dose that she attempted to flush her PICC line but reports that the saline was draining around the line. She denies any fever, increasing pain, drainage, vomiting, diarrhea, chills. She has an allergy to hydrocodone and oxycodone. Vitals are stable. On exam:there is a PICC line present to the left upper arm, no edema, no erythema, no increased warmth, no drainage. No signs of infection to the PICC line. Spoke to Dr. Willis, infectious disease, regarding patient presentation and results, she advised can write patient Augmentin twice daily for 3 days and to have patient keep her appointment for April 05. Patient initially left the ER AMA due to the wait time, I was able to speak with patient on the telephone and she was able to identify herself and I advised patient that we were going to change her antibiotics and she wanted me to call into the [facility] in [facility] on [facility] and she knows to keep her appointment with infectious disease on 04/05/2021 and to return to emergency room for any new or worsening symptoms. Critical care attestation.: If time is entered above; I have spent that time in minutes in the direct care of this critically ill patient, excluding procedure time. ED Disposition Clinical Impression: Occluded PICC line Qualifiers: Encounter type: initial encounter Qualified Code(s): T82.898A - Other specified complication of vascular prosthetic devices, implants and grafts, initial encounter Disposition: HOME / SELF CARE / HOMELESS Is pt being admited?: No Does the pt Need Aspirin: No Condition: Stable Additional Instructions: Please take medication as prescribed. Please keep your appointment with infectious disease on 04/05/2021. Return to emergency room for any new or worsening symptoms Referrals: OLESYA DAVALOS MD [Staff Physician] - 2-3 Days Time of Disposition: 19:06 Print Language: BAHAMIAN
== END 2021-04-02 21:00 | disposition home or self-care (01) ==
LOC: ED 15:08
DX: T82.898A Other specified complication of vascular prosthetic devices, implants and grafts, initial encounter (principal); A15.9 Respiratory tuberculosis unspecified; D25.9 Leiomyoma of uterus, unspecified; Z90.710 Acquired absence of both cervix and uterus; Z98.890 Other specified postprocedural states; F17.200 Nicotine dependence, unspecified, uncomplicated; Z88.5 Allergy status to narcotic agent; Z88.6 Allergy status to analgesic agent
CPT/HCPCS: 99281